=== PATIENT | male | born 1945 | race Caucasian/White ===

== ENCOUNTER 2024-11-09 17:50 | Inpatient (IN) | payer MEDICARE, BC, SELFPAY ==
[2024-11-09 18:29] VITALS: BP 146/84; PULSE 91; RESP 18; TEMP 36.3; O2SAT 95
--- NOTE | 2024-11-09 18:30 | PC.NURSE ---
Patient is a new direct admit, BP 146/84, HR91, RR18, Temp 97.3 no complaints of pain at this time states he is comfortable, son at bedside
[2024-11-09 18:31] VITALS: BMI 22.8
--- NOTE | 2024-11-09 19:44 | EKG_ITS ---
[facility] Test Date: 2024-11-09 Pat Name: JOSE CARLOS PLUNKETT [facility] Gender: Male Registered Private Duty Nurse: TISHA : 1945 Requested By: Khurram Ray Order Number: [id number] Reading MD: Khurram Ray Measurements Intervals [place] Rate: 77 P: 39 LA: 166 QRS: 39 QRSD: 98 T: 53 QT: 373 QTc: 423 Interpretive Statements SINUS RHYTHM Compared to ECG 03/05/2021 14:08:05 No significant changes /store/S0/[id number].pdf
--- NOTE | 2024-11-09 19:47 | XR_ITS ---
Examination: CT chest with intravenous contrast 2-D sagittal and coronal reconstructions Exam date and time: November 10, 2024 1737 hours Comparison January 26, 2017 INDICATIONS: Diagnosis myasthenia gravis CTDI:vol (mGy) 19.3 DLP: (mGycm) 785 Technique: Multiple axial sections of the thorax have been obtained. Sections have been obtained, 3 mm slice thickness. Mediastinal and lung density settings have been obtained. Intravenous contrast administered, 60 cc Isovue-370. 2-D sagittal, coronal images obtained. Low dose protocols were performed. One or more of the following dose reduction techniques were used; automated exposure control, adjustment of the mA and/or KV according to patient size, use of iterative reconstruction technique. Findings: No anterior mediastinal mass No thoracic aortic aneurysmal dilatation Pulmonary artery segments are not enlarged No paratracheal tracheobronchial or bronchopulmonary adenopathy Atelectasis versus mild pneumonia both bases 4 mm pleural-based pulmonary nodule posterior left lung image 100 2 mm pulmonary nodule posterior right lung image 208 12 mm pulmonary nodule right lower lobe image 237 4 mm anterior liver cyst Possible gallbladder sludge No pancreatic mass Kidneys partially visualized no hydronephrosis Severe osteopenia IMPRESSION: No anterior mediastinal mass Pulmonary nodules as above, with this study as baseline recommend 1 additional 6 month follow-up CT chest without contrast Recommend hepatobiliary sonography follow-up to exclude gallbladder sludge
--- NOTE | 2024-11-09 19:48 | XR_ITS ---
Examination: AP chest single view Technique one AP portable supine chest single view Exam date and time: November 09, 20244 hrs. Indications: Difficulty breathing today, diagnosis myasthenia gravis Findings: Normal heart size. Lungs are clear. Prominent osteopenia Impression: No active disease
[2024-11-09 20:00] VITALS: BP 136/65; PULSE 73; PULSE 74; RESP 17; TEMP 36.4; O2SAT 96
[2024-11-09 20:42] LABS: Basophils % (Auto) 1 % (0-2.5); Eosinophils # (Auto) 0.3 Thou/mm3 (0.0-0.5); Eosinophils % (Auto) 6 % (0-10); Hematocrit 40.3 % (41.0-53.0); Hemoglobin 13.5 g/dL (13.5-16.0); Immature Granulocytes % (Auto) 0 % (0-0); Immature Granulocytes Auto 0.01 Thou/mm3 (0.00-0.00); Lymphocytes # (Auto) 1.7 Thou/mm3 (1.0-4.8); Lymphocytes % (Auto) 28 % (10-50); Mean Corpuscular HGB Conc 33.5 g/dl (31.0-37.0); Mean Corpuscular Volume 87 fL (80-100); Monocytes # (Auto) 0.5 Thou/mm3 (0.0-0.8); Monocytes % (Auto) 9 % (0-12); Neutrophils # (Auto) 3.6 Thou/mm3 (1.8-7.7); Neutrophils % (Auto) 58 % (37-80); Nucleated Red Blood Cell % 0 /100 WBC (0); Platelet Count 196 Thou/mm3 (140-440); RDW Standard Deviation 40.7 fL (35.1-43.9); Red Blood Count 4.65 Miln/mm3 (4.50-5.90); White Blood Count 6.2 Thou/mm3 (3.8-10.6)
--- NOTE | 2024-11-09 20:57 | PD.RESHP ---
Documentation for date of: 11/09/24 HPI History of Present Illness Chief complaint: Dysphagia, neck muscle weakness History of present illness: Mr. Mcdaniels is a 78-year-old male with past medical history of myasthenia gravis, Parkinson's disease and allergic seasonal bronchitis who presented to [facility] on 11/09/2024 with a chief complaint of dysphagia and neck muscle weakness. Patient's son present at bedside, patient reported initially he was diagnosed in 2017 with myasthenia gravis and has been following up outpatient with neurology closely, reports compliance with myasthenia gravis medications. Patient reported that recently his myasthenia gravis symptoms have started getting worse over the last 3 weeks. Apparently his symptoms have been intermittent worse on some days more than others there is notable bulbar weakness identifiably with chewing and swallowing he also reports extensive weakness of neck muscles, making it difficult for him to hold up his neck. He was recently evaluated in neurologists office who recommended patient to be admitted for management of myasthenia gravis exacerbation. Neurology was consulted and will be following closely. Vitals: On presentation blood pressure 146/84, P91, RR 18, temp 97.3, O2 sat 95 on room air Labs: On presentation labs significant for hematocrit 40.3, chloride 110, BUN 25, globulin 2.1 Imaging: Chest x-ray shows no active disease. EKG shows sinus rhythm, QTc 423 Review of Systems Review of Systems Narrative Review of Systems: ROS: -CONSTITUTIONAL: Denies weight loss, fever and chills. -HEENT: Denies changes in vision and hearing. Positive for neck muscle weakness -RESPIRATORY: Denies SOB and positive for cough. -CV: Denies palpitations and Chest Pain. -GI: Denies abdominal pain, nausea, vomiting,constipation and diarrhea. Positive for dysphagia -: Denies dysuria and urinary frequency. -MSK: Denies myalgia and joint pain. -SKIN: Denies rash and pruritus. -NEUROLOGICAL: Denies headache and syncope. -PSYCHIATRIC: Denies recent changes in mood. Denies anxiety and depression. Past Medical History Past Medical History Comments PMH COMMENT: PMH: Positive for myasthenia gravis (diagnosed 2016), Parkinson's disease, allergic seasonal bronchitis PSHx: Prostate surgery in 2009 Allergies: Latex (itching) Social history: -Smoking: Denies -Alcohol Use: Denies -Illicit Drug Use: Denies Family History: Denies family history of myasthenia gravis or Parkinson's disease. Exam Vital Signs Temp Pulse Resp BP Pulse Ox O2 Del Method 97.3 F 74 18 146/84 H 95 Aerosol Mask 11/09/24 18:29 11/09/24 20:00 11/09/24 18:29 11/09/24 18:29 11/09/24 18:29 11/09/24 18:29 Narrative Exam Physical Exam General: Awake and in no acute distress. Conversational and non-toxic appearing. HEENT: Normocephalic, atraumatic, mucous membranes moist. Heart: Regular rate and rhythm, no murmurs. Lungs: Clear to auscultation with no wheezing or crackles. Abdomen: Soft, nondistended, nontender, positive bowel sounds. ?No guarding or rebound tenderness. Neurologic: Alert and oriented x3, no gross neurological deficit, and patient able to move all 4 extremities. Pill-rolling tremor noted left hand, neck muscle weakness noted. Extremities: No edema. Skin: No rash or ecchymoses. Results: Labs 11/09/24 19:51 11/09/24 19:51 Labs: Short CBC 11/09/24 Range/Units 19:51 WBC 6.2 (3.8-10.6) Thou/mm3 Hgb 13.5 (13.5-16.0) g/dL Hct 40.3 L (41.0-53.0) % Plt Count 196 (140-440) Thou/mm3 Quality Measures Quality Measures VTE prophylaxis Advance care planning discussed with:: patient Medications Home Medications and Allergies Home Medications ?Medication ?Instructions ?Recorded ?Confirmed ?Type enalapril maleate 5 mg tablet 5 mg PO QDAY #0 tabs 02/12/16 11/10/24 History (Vasotec) azathioprine 50 mg tablet (Imuran) 50 mg PO BID #0 tabs 07/30/17 11/10/24 History Pyridostigmine [place] SA * 60 mg PO 5 TIMES DAILY Myasthenia 08/27/20 11/09/24 History (MESTINON SA *) gravis ##0 fluticasone 100 mcg-salmeterol 50 1 inh inhalation BID 08/27/20 11/09/24 History mcg/dose blistr powdr for inhalation (Wixela Inhub) tamsulosin 0.4 mg capsule 0.4 mg PO QHS 08/26/21 11/10/24 History carbidopa 25 mg-levodopa 100 mg 1 tab PO 3XD 11/09/24 11/10/24 History tablet pramipexole 0.5 mg tablet 0.5 mg PO 3XD 11/09/24 11/09/24 History pyridostigmine bromide 60 mg tablet 60 mg PO 5 TIMES DAILY 11/10/24 11/10/24 History Allergies Allergy/AdvReac Type Severity Reaction Status Date / Time latex Allergy Severe Itching Unverified 11/10/24 00:06 Visit Medications Acetaminophen (Acetaminophen 325 Mg Tablet) 650 mg PO QDAY@2029 [place] Stop: 11/13/24 20:31 Diphenhydramine HCl (Diphenhydramine Inj 50 Mg/Ml Vial) 25 mg IV QDAY@2029 [place] Stop: 11/13/24 20:31 Immune Globulin 20 gm/ Immune Globulin 10 gm/ IV Miscellaneous Supplies 300 mls @ 50 mls/hr IV QDAY@2099 [place] Stop: 11/14/24 02:59 Pyridostigmine [place] (Pyridostigmine Inj 5 Mg/Ml Amp 2 Ml) 2 mg IV Q6HR [place] Stop: 12/10/24 00:00 Assessment & Plan Plan Assessment and Plan: Summary: Mr. Mcdaniels is a 78-year-old male with past medical history of myasthenia gravis, Parkinson's disease and allergic seasonal bronchitis who presented to [facility] on 11/09/2024 with a chief complaint of dysphagia and neck muscle weakness. He was recently evaluated in neurologists office who recommended patient to be admitted for management of myasthenia gravis exacerbation. Neurology is consulted and will be following closely. #Myasthenia gravis exacerbation #Dysphagia #Neck muscle weakness Exacerbation of myasthenia gravis symptoms, dysphagia, jaw muscle weakness, neck weakness noted for about 3 weeks. Patient compliant with myasthenia gravis medications, was recently seen in neurologist office, neurology recommended admission for myasthenia gravis exacerbation. Neurology was consulted and is following closely. No respiratory muscle weakness noted, patient saturating well on room air, can consider NIF testing to assess muscle strength. Plan: ? Admit to telemetry ? Neurochecks every 4 hours ? Pyridostigmine 2 mg IV every 6 hours ? IVIG 400 mg/kg daily (to run for 6 hours) ? IVIG premedication: Tylenol 650 mg p.o./AK and Benadryl 25 mg IV to be given 30 minutes prior to IVIG ? Neurology consulted, appreciate recommendations ? N.p.o., aspiration precaution, nurse swallow screen, speech therapy referral ? Follow CT chest with and without contrast #Parkinson's disease Follows neurology for Parkinson's, pill-rolling tremor noted left hand ?Resumed home dose carbidopa-levodopa ?Resumed home dose pramipexole 0.5 mg 3 times daily #Seasonal allergic bronchitis No wheezing appreciated currently, patient saturating well on room air -Fluticasone salmeterol inhaler twice daily be added DVT prophylaxis: Heparin every 12 hours GI prophylaxis: IV Protonix Diet: N.p.o., pending speech therapy evaluation Lines: Peripheral IV Code status: Full code Case discussed with Attending Dr. Cowan. Khurram Ray PGY1 Internal medicine Disclaimer: This note was dictated by speech recognition. Minor errors in bike shop manager may be present due to voice recognition software. Attending Provider Attestation/Addendum 78-year-old male patient Mr. Jose Rafael Mcdaniels is a patient of Dr. Muñoz who was admitted directly because of neck muscle weakness. Patient has myasthenia gravis. He was started on IVIG infusion 400 mg IV over 6 hours x 5 days and Mestinon 2 mg IV every [address] Muñoz will follow.
[2024-11-09 21:03] LABS: Alanine Aminotransferase 26 U/L (10-49); Albumin, Serum 4.2 gm/dL (3.4-4.8); Alkaline Phosphatase 86 U/L (46-116); Anion Gap 4 (7-16); Aspartate Amino Transferase 23 U/L (0-34); BUN/Creatinine Ratio 25 Ratio (12-20); Bilirubin,Total 0.7 mg/dL (0.3-1.2); Blood Urea Nitrogen 25 mg/dL (9-23); Calcium 9.7 mg/dL (8.3-10.6); Calcium (Corrected) 9.7 mg/dL (8.5-10.1); Carbon Dioxide 28.6 mMol/L (20.0-31.0); Chloride 110 mMol/L (98-107); Globulin 2.1 gm/dL (2.3-3.5); Glucose 77 mg/dL (74-106); Osmolality,Calculated 288 (275-295); Potassium 4.2 mMol/L (3.4-5.1); Sodium 143 mMol/L (136-145); Total Protein 6.3 gm/dL (5.7-8.2); eGFR > 60 See Note
--- NOTE | 2024-11-09 21:15 | PC.NURSE ---
Pt transferred to tele floor room 262 per MD Ray order, all belongings was transferred. Report given to Monie GREEN.
[2024-11-09 21:30] VITALS: BP 131/66; PULSE 98; RESP 15; TEMP 36.5; O2SAT 99
--- NOTE | 2024-11-09 22:40 | PD.VCONSULT1 ---
Telemedicine visit statement This visit was conducted with the use of interactive audio and video telecommunications system that permits real time communication between the patient and the provider. Patient's verbal consent for virtual visit was obtained on 11/09/24 at 2240. Past Medical History Past Medical History Comments PMH COMMENT: PMH: Positive for myasthenia gravis (diagnosed 2016), Parkinson's disease, allergic seasonal bronchitis PSHx: Prostate surgery in 2009 Allergies: Latex (itching) Social history: -Smoking: Denies -Alcohol Use: Denies -Illicit Drug Use: Denies Family History: Denies family history of myasthenia gravis or Parkinson's disease. TeleMedicine ROS Pertinent Review of Systems Systems Reviewed: All systems reviewed, normal except as documented Meds Home Medications and Allergies Home Medications ?Medication ?Instructions ?Recorded ?Confirmed ?Type enalapril maleate 5 mg tablet 5 mg PO QDAY #0 tabs 02/12/16 11/10/24 History (Vasotec) azathioprine 50 mg tablet (Imuran) 50 mg PO BID #0 tabs 07/30/17 11/10/24 History Pyridostigmine [place] SA * 60 mg PO 5 TIMES DAILY Myasthenia 08/27/20 11/09/24 History (MESTINON SA *) gravis ##0 fluticasone 100 mcg-salmeterol 50 1 inh inhalation BID 08/27/20 11/09/24 History mcg/dose blistr powdr for inhalation (Wixela Inhub) tamsulosin 0.4 mg capsule 0.4 mg PO QHS 08/26/21 11/10/24 History carbidopa 25 mg-levodopa 100 mg 1 tab PO 3XD 11/09/24 11/10/24 History tablet pramipexole 0.5 mg tablet 0.5 mg PO 3XD 11/09/24 11/09/24 History pyridostigmine bromide 60 mg tablet 60 mg PO 5 TIMES DAILY 11/10/24 11/10/24 History Allergies Allergy/AdvReac Type Severity Reaction Status Date / Time latex Allergy Severe Itching Unverified 11/10/24 00:06 Virtual exam Vital Signs Temp Pulse Resp BP Pulse Ox O2 Del Method 97.7 F 98 15 131/66 H 99 Room Air 11/09/24 21:30 11/09/24 21:30 11/09/24 21:30 11/09/24 21:30 11/09/24 21:30 11/09/24 21:30 Results Labs 11/10/24 04:18 11/10/24 04:18 Labs: Short CBC 11/09/24 Range/Units 19:51 WBC 6.2 (3.8-10.6) Thou/mm3 Hgb 13.5 (13.5-16.0) g/dL Hct 40.3 L (41.0-53.0) % Plt Count 196 (140-440) Thou/mm3 BMP 11/09/24 19:51 Sodium 143 Potassium 4.2 Chloride 110 H Carbon Dioxide 28.6 BUN 25 H Creatinine 1.0 Glucose 77 Calcium 9.7 Liver Function 11/09/24 Range/Units 19:51 Total Bilirubin 0.7 (0.3-1.2) mg/dL AST 23 (0-34) U/L ALT 26 (10-49) U/L Alkaline Phosphatase 86 (46-116) U/L Albumin 4.2 (3.4-4.8) gm/dL Assessment & Plan Problem List (1) Myasthenia gravis with exacerbation: Status: Acute Assessment and plan: Continue with IVIG 400 mg/kg with premedications Mestinon 2 mg IV every 6 hours until he is able to swallow better for risk of aspiration Consult speech pathology Get pulmonary mechanics at the bedside Follow-up with the CT chest to look for residual thymic tissue. (2) Parkinsons disease: Status: Chronic Assessment and plan: Continue with pramipexole
[2024-11-09] MEDS: PYRIDOSTIGMINE 5 MG/ML 2 MG IV (23:51)
[2024-11-10] VITALS (8 sets, daily range): BP systolic 119–136; BP diastolic 60–72; PULSE 60–84; RESP 16–21; TEMP 36.2–36.5; O2SAT 96–99; BMI 22.8; BMI 13.0
[2024-11-10] MEDS: DiphenhydrAMINE INJ 50 MG/ML VIAL 25 MG IV ×2 (00:40→21:00)
[2024-11-10] MEDS: ACETAMINOPHEN 325 MG TABLET 650 MG PO ×2 (00:41→21:00)
[2024-11-10] MEDS: PRE MIXED IV ×2 (01:12→21:45)
[2024-11-10] MEDS: IMMUNE GLOB GA CA IV ×2 (01:12→21:45)
[2024-11-10 05:40] LABS: Basophils % (Auto) 1 % (0-2.5); Eosinophils # (Auto) 0.3 Thou/mm3 (0.0-0.5); Eosinophils % (Auto) 7 % (0-10); Hematocrit 37.2 % (41.0-53.0); Hemoglobin 12.3 g/dL (13.5-16.0); Immature Granulocytes % (Auto) 0 % (0-0); Lymphocytes # (Auto) 1.5 Thou/mm3 (1.0-4.8); Lymphocytes % (Auto) 36 % (10-50); Mean Corpuscular HGB Conc 33.1 g/dl (31.0-37.0); Mean Corpuscular Hemoglobin 28.9 pg (25.0-35.0); Mean Corpuscular Volume 87 fL (80-100); Monocytes # (Auto) 0.3 Thou/mm3 (0.0-0.8); Monocytes % (Auto) 8 % (0-12); Neutrophils # (Auto) 2.1 Thou/mm3 (1.8-7.7); Neutrophils % (Auto) 50 % (37-80); Nucleated Red Blood Cell % 0 /100 WBC (0); Platelet Count 160 Thou/mm3 (140-440); Red Blood Count 4.26 Miln/mm3 (4.50-5.90); White Blood Count 4.2 Thou/mm3 (3.8-10.6)
[2024-11-10 05:44] LABS: INR 1.4 (0.9-1.3); Partial Thromboplastin Time 33.2 Seconds (22.0-36.0); Prothrombin Time 14.6 Seconds (9.0-12.2)
[2024-11-10] MEDS: PRAMIPEXOLE 0.25 MG TABLET 0.5 MG PO ×3 (06:14→22:30)
[2024-11-10] MEDS: PYRIDOSTIGMINE 5 MG/ML 2 MG IV ×3 (06:15→18:14)
[2024-11-10 06:25] LABS: Alanine Aminotransferase 21 U/L (10-49); Albumin, Serum 3.6 gm/dL (3.4-4.8); Albumin/Globulin Ratio 1.6 (1.2-2.2); Alkaline Phosphatase 76 U/L (46-116); Anion Gap 5 (7-16); Aspartate Amino Transferase 17 U/L (0-34); BUN/Creatinine Ratio 22 Ratio (12-20); Bilirubin,Total 0.7 mg/dL (0.3-1.2); Blood Urea Nitrogen 22 mg/dL (9-23); Calcium 9.2 mg/dL (8.3-10.6); Calcium (Corrected) 9.5 mg/dL (8.5-10.1); Carbon Dioxide 27.8 mMol/L (20.0-31.0); Cardiac Risk Estimate 2.5 RATIO (4.0-6.7); Chloride 110 mMol/L (98-107); Cholesterol 81 mg/dL (132-200); Globulin 2.3 gm/dL (2.3-3.5); Glucose 83 mg/dL (74-106); HDL Cholesterol 33 mg/dL (40-60); LDL Cholesterol,Calculated 36 mg/dL (0-130); Osmolality,Calculated 287 (275-295); Phosphorous 3.3 mg/dL (2.4-5.1); Sodium 143 mMol/L (136-145); Total Protein 5.9 gm/dL (5.7-8.2); Triglycerides 62 mg/dL (30-150); eGFR > 60 See Note
[2024-11-10 08:10] LABS: Collection Type, Urine Clean Catch
[2024-11-10] MEDS: PANTOPRAZOLE INJ 40 MG VIAL IVP (08:13)
[2024-11-10] MEDS: HEPARIN SOD INJ 5000 UNIT/ML VIAL SC ×2 (08:14→21:05)
--- NOTE | 2024-11-10 09:34 | PCS.ST ---
Acute dysphagia d/t MG exacerbation. Not safe for PO diet today. See report for details. Ok to give one PO med in puree. ST service daily.
[2024-11-10 09:44] LABS: Bacteria,Urine 4+; Bilirubin,Urine Negative (Negative); Blood,Urine Negative (Negative); Clarity,Urine Clear (Clear/Hazy); Color,Urine Yellow (Lt Yel-Yel); Glucose, Urine Negative (Negative); Hyaline Casts,Urine < 1 /hpf (0-1); Ketones,Urine 1+ (Negative); Leukocyte Esterase,Urine Negative (Negative); Nitrite,Urine Positive (Negative); PH,Urine 5.5 (5.0-7.0); Protein,Urine Trace (Neg - Trace); RBC,Urine 2 /hpf (0-3); Specific Gravity,Urine 1.031 (1.001-1.035); Squamous Epithelial Cell,Urine < 1 /hpf (0-5); Urobilinogen,Urine Negative mg/dL (0.0-1.0); WBC,Urine 1 /hpf (0-5)
--- NOTE | 2024-11-10 11:44 | PC.SS ---
FIELD SERVICE POULTRY TECHNICIAN conducted bedside contact with the patient conduct initial assessment and to discuss discharge planning.? Patient confirmed demographic information.? Patient resides at home with spouse, Jenn Mcdaniels.? Patient does not utilize DME to assist with ambulation.? Patient does not utilize home oxygen.? Patient describes the ability to complete ADL?s independently.? Patient?s medical surrogate decision maker is spouse, Jenn Mcdaniels.? Patient?s PCP is Rukhsana Bowers.? Patient?s neurologist is Dr. Ledesma. Patient utilizes [facility] for medication services.? Plan is for the patient to return home at the time of discharge.? PT recommending home health.? Patient receptive to home health.? Preferred home health agency is [facility].? Family will provide transportation on behalf of the patient at the time of discharge.? No further intervention required at this time, social services director will be available to address any further concerns.? Next of Kin: Jenn Mcdaniels D/C Plan: Home
--- NOTE | 2024-11-10 13:26 | PD.ADDPROG ---
Addendum Progress Note Addendum Date of report being addended: 11/10/24 Narrative: Attending's attestation: I reviewed labs, imaging, EKG, home medications and prior available records. Face to face evaluation was performed by me. I have personally examined the patient and discussed assessment and plan with the IM team. I reviewed the resident note and agree with the plan with exceptions as below. Myasthenia gravis flare Parkinson's disease Dysphagia Generalized weakness, more in neck muscles Started pyridostigmine and IVIG Consulted neurology: Appreciate recommendations Ordered swallow evaluation: Failed. Keep the patient NPO. Started IV fluids. Repeat swallow test/speech evaluation later when the MG improves Continue levodopa/carbidopa PT evaluation
--- NOTE | 2024-11-10 14:06 | PD.RESPRO ---
Documentation for date of: 11/10/24 Subjective Subjective Interval history: Patient seen at bedside. No acute overnight events. He is a 78-year-old male with a past medical history of myasthenia gravis and Parkinson's presented on 11/09/2024 with a chief complaint of dysphagia and neck muscle weakness. Other symptoms are been worsening over the past year, may have significantly worsened over the last 3 weeks. He had an appointment with a neurologist who recommended he be admitted for management of myasthenia gravis exacerbation. At bedside today, patient does report neck muscle weakness more significant than any other symptom as well as difficulty chewing and swallowing. Speech evaluation was done but patient did not pass so is currently n.p.o. He is on IVIG as well as Mestinon Exam Vital Signs Temp Pulse Resp BP Pulse Ox O2 Del Method 97.5 F 70 21 H 124/68 99 Room Air 11/10/24 12:00 11/10/24 12:00 11/10/24 12:00 11/10/24 12:00 11/10/24 12:11/10/24 12:00 Narrative Exam GENERAL: AAOX3, sitting in bed comfortably NEURO: POWERTRAIN ENGINEER grossly intact. Resting tremors more significant to the left, upper extremity strength preserved-5/5, lower extremity strength-3/5, reflexes decreased bilaterally HEENT: Moist mucosa. Eyes open, symmetrical, & clear CARDIO: No chest pain on palpation. Heart RRR, no obvious murmurs PULM: No noted coughing/dyspnea. Lungs CTA B/L GI: Abdomen soft, nondistended, no pain on palpation. BSx4 URO/TERRITORY ACCOUNT MANAGER:: No further abnormalities noted. SKIN/MSK/EXT: Weakness in the neck extensor muscles Objective Labs 11/11/24 04:44 11/11/24 04:44 Labs: Laboratory Results - last 24 hr 11/09/24 11/10/24 11/10/24 19:51 04:18 08:00 WBC 6.2 4.2 RBC 4.65 4.26 L Hgb 13.5 12.3 L Hct 40.3 L 37.2 L MCV 87 87 MCH 29.0 28.9 MCHC 33.5 33.1 RDW Std Deviation 40.7 41.0 Plt Count 196 160 D Neut % (Auto) 58 50 Lymph % (Auto) [address] [place] % (Auto) 9 8 Eos % (Auto) 6 7 Baso % (Auto) 1 1 Neut # (Auto) 3.6 2.1 Lymph # (Auto) 1.[address] [place] # (Auto) 0.5 0.3 Eos # (Auto) 0.3 0.3 Baso # (Auto) 0.0 0.0 Immature Gran # (Auto) 0.01 H 0.00 Absolute Nucleated RBC 0.00 0.00 Immature Gran % 0 0 Nucleated RBC % 0 0 PT 14.6 H INR 1.4 H APTT 33.2 Sodium 143 143 Potassium 4.2 4.0 Chloride 110 H 110 H Carbon Dioxide 28.6 27.8 Anion Gap 4 L 5 L BUN 25 H 22 Creatinine 1.0 1.0 Estim Creat Clear Calc 72.0 72.0 eGFR > 60 > 60 BUN/Creatinine Ratio 25 H 22 H Glucose 77 83 Calculated Osmolality 288 287 Calcium 9.7 9.2 Corrected Calcium 9.7 9.5 Phosphorus 3.3 Magnesium 2.0 Total Bilirubin 0.7 0.7 AST 23 17 ALT 26 21 Alkaline Phosphatase 86 76 Total Protein 6.3 5.9 Albumin 4.2 3.6 D Globulin 2.1 L 2.3 Albumin/Globulin Ratio 2.0 1.6 Triglycerides 62 Cholesterol 81 L LDL Cholesterol, Calc 36 HDL Cholesterol 33 L Cholesterol/HDL Ratio 2.5 L TSH 2.50 Ur Collection Type Clean Catch Urine Color Yellow Urine Clarity Clear Urine pH 5.5 Ur Specific [place] 1.031 Urine Protein Trace Urine Glucose (UA) Negative Urine Ketones 1+ A Urine Blood Negative Urine Nitrite Positive Urine Bilirubin Negative Urine Urobilinogen (Auto) Negative Ur Leukocyte Esterase Negative Urine RBC 2 Urine WBC 1 Ur Squamous Epith Cells < 1 Urine Bacteria 4+ A Hyaline Casts < 1 Quality Measures Quality Measures VTE prophylaxis Advance care planning discussed with:: patient Assessment & Plan Assessment Current Active Medications: Generic Name Dose Route Start Last Admin Trade Name Freq PRN Reason Stop Dose Admin Acetaminophen 650 mg 11/09/24 20:30 11/10/24 00:41 Acetaminophen 325 Mg Tablet PO 11/13/24 20:31 650 mg QDAY@2030 [facility] Administration Acetaminophen 650 mg 11/09/24 21:26 Acetaminophen 325 Mg Tablet PO 12/09/24 21:25 Q6H PRN Mild Pain (1-3 & Fever >101.5 Diphenhydramine HCl 25 mg 11/09/24 20:30 11/10/24 00:40 Diphenhydramine Inj 50 Mg/Ml Vial IV 11/13/24 20:31 25 mg QDAY@2030 [facility] Administration Heparin Sodium (Porcine) 5,000 unit 11/10/24 09:00 11/10/24 08:14 Heparin Sod Inj 5000 Unit/Ml Vial SC 11/24/24 08:59 5,000 unit Q12HR [place] Administration Immune Globulin 20 gm/ Immune 300 mls @ 50 mls/hr 11/09/24 21:00 11/10/24 01:12 Globulin 10 gm/ IV IV 11/14/24 02:59 50 mls/hr Miscellaneous Supplies QDAY@2100 [facility] Administration Sodium Chloride 1,000 mls @ 75 mls/hr 11/10/24 13:42 Ns IV 12/10/24 13:41 .[id number] [place] Pantoprazole Sodium 40 mg 11/10/24 09:00 11/10/24 08:13 Pantoprazole Inj 40 Mg Vial IVP 12/10/24 08:59 40 mg QDAY [place] Administration Pramipexole Dihydrochloride 0.5 mg 11/10/24 06:00 11/10/24 06:14 Pramipexole 0.25 Mg Tablet PO 12/10/24 05:59 0.5 mg TID [place] Administration Pyridostigmine [place] 2 mg 11/10/24 00:00 11/10/24 13:00 Pyridostigmine Inj 5 Mg/Ml Amp 2 Ml IV 12/10/24 00:00 2 mg Q6HR [place] Administration Fluticasone/Salmeterol 1 puff 11/09/24 21:16 Fluticasone/Salmeterol 100/50 14 Dose Inh INH 12/10/24 06:59 BIDRT PRN SOB/Wheeze Sennosides 1 tab 11/09/24 21:26 Senna Tablet PO 12/09/24 21:25 QDAY PRN constipation Protocol Plan Summary: The patient is a 78-year-old male with past medical history of myasthenia gravis, Parkinson's disease and allergic seasonal bronchitis who presented to [facility] on 11/09/2024 with a chief complaint of dysphagia and neck muscle weakness. He was recently evaluated in neurologists office who recommended patient to be admitted for management of myasthenia gravis exacerbation. Neurology is consulted and will be following closely. #Myasthenia gravis exacerbation #Dysphagia #Neck muscle weakness The patient presented with exacerbation of myasthenia gravis symptoms, dysphagia, jaw muscle weakness, neck weakness noted for about 3 weeks. Patient compliant with myasthenia gravis medications, was recently seen in neurologist office, neurology recommended admission for myasthenia gravis exacerbation. Neurology was consulted and is following closely. No respiratory muscle weakness noted, patient saturating well on room air. Patient failed swallow evaluation today, will continue to be npo and repeat eval in 24-48hrs Plan: ? Pyridostigmine 2 mg IV every 6 hours ? IVIG 400 mg/kg daily (to run for 6 hours) ? IVIG premedication: Tylenol 650 mg p.o./TX and Benadryl 25 mg IV to be given 30 minutes prior to IVIG ? Neurology consulted, appreciate recommendations ? N.p.o., aspiration precaution, speech therapy referral ? Follow CT chest with and without contrast #Parkinson's disease Follows neurology for Parkinson's, pill-rolling tremor noted left hand Plan: ?Resumed home dose pramipexole 0.5 mg 3 times daily #Seasonal allergic bronchitis No wheezing appreciated currently, patient saturating well on room air -Fluticasone salmeterol inhaler twice daily be added DVT prophylaxis: SC Heparin GI prophylaxis: IV Protonix Diet: N.p.o Lines: Peripheral IV Code status: Full code Case was discussed with Dr Turner PGY-2 and attending physician, Dr Emilia Thomas MD PGY-1 Disclaimer: This note was dictated by speech recognition. Minor errors in service center technician may be present due to voice recognition software. Attending Provider Attestation/Addendum I reviewed labs, imaging, EKG, home medications and prior available records. Face to face evaluation was performed by me. I have personally examined the patient and discussed assessment and plan with the IM team. I reviewed the resident note and agree with the plan with exceptions as below. See my addendum in a separate addendum note
[2024-11-10] MEDS: SODIUM CHLORIDE 0.9% 1000 ML 1,000 ML 75 ML IV (14:41)
--- NOTE | 2024-11-10 21:25 | PD.NEUROPROG ---
Documentation for date of: 11/10/24 Subjective Subjective Interval history: Patient was seen in telemetry today. Continues to have neck extensor weakness and bulbar weakness. Tolerating IVIG well without any side effects. Exam - Neurology Vital Signs Temp Pulse Resp BP Pulse Ox O2 Del Method 97.5 F 84 17 136/72 H 97 Room Air 11/10/24 19:49 11/10/24 19:49 11/10/24 19:49 11/10/24 19:49 11/10/24 19:49 11/10/24 19:49 Narrative Exam GENERAL APPEARANCE: Well hydrated, well-nourished in no acute distress. HEENT: Normocephalic, atraumatic, extraocular movements intact. Pupils: Equal reacting to light and accommodation NECK: Supple, no JVD or bruits. CARDIOVASULAR: Heart: S1, S2 heard, regular without S3-S4 or murmur no rubs or gallops. LUNGS/CHEST: Clear to auscultation bilaterally. No rails, rhonchi, or wheezing. Normal inspection. ABDOMEN: Soft, nontender, with normal bowel sounds. No pulsatile masses. No rebound, rigidity, or guarding. Normal inspection and palpation. EXTREMITIES: Normal inspection and palpation. No edema, clubbing or cyanosis. SKIN: Warm and dry without rashes. Normal inspection. MUSCULOSKELETAL: No cervical, thoracic, lumbar or midline bony tenderness. Normal inspection. NEURO: Alert, awake and oriented x3. Cranial nerves: II through XII grossly intact. Speech and language: Mild dysarthria secondary to bulbar weakness. Motor system: Tone and bulk: Normal: Strength: 5 out of 5 in all 4 extremities; No pronator drift noted. He has significant neck extensor weakness. Deep tendon reflexes: 1+ bilaterally symmetrical. Plantar reflex: Downgoing bilaterally. Sensory system: Intact to all modalities of sensation bilaterally. Coordination: Intact to rexmyl-xuzm-izruo and fycq-fekp-wytt test bilaterally. No ataxia, no dysmetria, or dysdiadochokinesia noted. No intention tremors noted. Gait: Not tested. no signs of meningeal irritation noted. PSYCHIATRIC: Normal mood and affect. Objective Labs 11/10/24 04:18 11/10/24 04:18 Labs: Laboratory Results - last 24 hr 11/10/24 11/10/24 04:18 08:00 WBC 4.2 RBC 4.26 L Hgb 12.3 L Hct 37.2 L MCV 87 MCH 28.9 MCHC 33.1 RDW Std Deviation 41.0 Plt Count 160 D Neut % (Auto) 50 Lymph % (Auto) 36 [place] % (Auto) 8 Eos % (Auto) 7 Baso % (Auto) 1 Neut # (Auto) 2.1 Lymph # (Auto) 1.5 [place] # (Auto) 0.3 Eos # (Auto) 0.3 Baso # (Auto) 0.0 Immature Gran # (Auto) 0.00 Absolute Nucleated RBC 0.00 Immature Gran % 0 Nucleated RBC % 0 PT 14.6 H INR 1.4 H APTT 33.2 Sodium 143 Potassium 4.0 Chloride 110 H Carbon Dioxide 27.8 Anion Gap 5 L BUN 22 Creatinine 1.0 Estim Creat Clear Calc 72.0 eGFR > 60 BUN/Creatinine Ratio 22 H Glucose 83 Calculated Osmolality 287 Calcium 9.2 Corrected Calcium 9.5 Phosphorus 3.3 Magnesium 2.0 Total Bilirubin 0.7 AST 17 ALT 21 Alkaline Phosphatase 76 Total Protein 5.9 Albumin 3.6 D Globulin 2.3 Albumin/Globulin Ratio 1.6 Triglycerides 62 Cholesterol 81 L LDL Cholesterol, Calc 36 HDL Cholesterol 33 L Cholesterol/HDL Ratio 2.5 L TSH 2.50 Ur Collection Type Clean Catch Urine Color Yellow Urine Clarity Clear Urine pH 5.5 Ur Specific [place] 1.031 Urine Protein Trace Urine Glucose (UA) Negative Urine Ketones 1+ A Urine Blood Negative Urine Nitrite Positive Urine Bilirubin Negative Urine Urobilinogen (Auto) Negative Ur Leukocyte Esterase Negative Urine RBC 2 Urine WBC 1 Ur Squamous Epith Cells < 1 Urine Bacteria 4+ A Hyaline Casts < 1 Assessment & Plan Assessment and plan (1) Myasthenia gravis with exacerbation: Status: Acute Assessment and plan: Continue with the Mestinon 2 mg IV, will change the frequency to every 4 hours. Continue with the IVIG for 4 more days with premedications. Continue with plan GI and DVT prophylaxis. Added maintenance fluid as he is n.p.o. Follow-up with the speech pathologist evaluation and management (2) Parkinsons disease: Status: Chronic Assessment and plan: Continue with pramipexole as prescribed
[2024-11-11] VITALS (9 sets, daily range): BP systolic 117–149; BP diastolic 62–92; PULSE 58–109; RESP 17–98; TEMP 36.2–37.2; O2SAT 96–98
[2024-11-11] MEDS: PYRIDOSTIGMINE 5 MG/ML 2 MG IV ×6 (01:07→21:40)
[2024-11-11] MEDS: RINGERS LACTATED 500 ML 500 ML 75 ML IV (04:00)
[2024-11-11] MEDS: PRAMIPEXOLE 0.25 MG TABLET 0.5 MG PO ×3 (05:54→21:40)
[2024-11-11 05:59] LABS: Basophils % (Auto) 0 % (0-2.5); Eosinophils # (Auto) 0.2 Thou/mm3 (0.0-0.5); Eosinophils % (Auto) 4 % (0-10); Hematocrit 36.3 % (41.0-53.0); Hemoglobin 12.3 g/dL (13.5-16.0); Immature Granulocytes % (Auto) 0 % (0-0); Immature Granulocytes Auto 0.01 Thou/mm3 (0.00-0.00); Lymphocytes % (Auto) 22 % (10-50); Mean Corpuscular HGB Conc 33.9 g/dl (31.0-37.0); Mean Corpuscular Hemoglobin 29.4 pg (25.0-35.0); Mean Corpuscular Volume 87 fL (80-100); Monocytes # (Auto) 0.4 Thou/mm3 (0.0-0.8); Monocytes % (Auto) 9 % (0-12); Neutrophils % (Auto) 64 % (37-80); Nucleated Red Blood Cell % 0 /100 WBC (0); Platelet Count 146 Thou/mm3 (140-440); RDW Standard Deviation 40.1 fL (35.1-43.9); Red Blood Count 4.19 Miln/mm3 (4.50-5.90); White Blood Count 4.7 Thou/mm3 (3.8-10.6)
[2024-11-11 06:31] LABS: Alanine Aminotransferase 15 U/L (10-49); Albumin, Serum 3.3 gm/dL (3.4-4.8); Albumin/Globulin Ratio 1.2 (1.2-2.2); Alkaline Phosphatase 70 U/L (46-116); Anion Gap 5 (7-16); Aspartate Amino Transferase 13 U/L (0-34); BUN/Creatinine Ratio 14 Ratio (12-20); Bilirubin,Total 0.7 mg/dL (0.3-1.2); Blood Urea Nitrogen 14 mg/dL (9-23); Calcium 8.7 mg/dL (8.3-10.6); Calcium (Corrected) 9.3 mg/dL (8.5-10.1); Carbon Dioxide 27.8 mMol/L (20.0-31.0); Chloride 108 mMol/L (98-107); Globulin 2.8 gm/dL (2.3-3.5); Glucose 81 mg/dL (74-106); Magnesium 1.9 mg/dL (1.6-2.6); Osmolality,Calculated 280 (275-295); Phosphorous 2.9 mg/dL (2.4-5.1); Sodium 141 mMol/L (136-145); Total Protein 6.1 gm/dL (5.7-8.2); eGFR > 60 See Note
[2024-11-11] MEDS: PANTOPRAZOLE INJ 40 MG VIAL IVP (09:01)
[2024-11-11] MEDS: HEPARIN SOD INJ 5000 UNIT/ML VIAL SC ×2 (09:01→20:41)
[2024-11-11] MEDS: RINGERS LACTATED 1000 ML 1,000 ML 75 ML IV (10:39)
--- NOTE | 2024-11-11 14:07 | ESPR_ITS ---
<Statement entered by Ezequiel Turner MD - 11/12/24 15:38> Senior Resident Attestation: I supervised/discussed management plan with internist medical doctor md physician Dr. Thomas, and was involved in the care of this patient. I personally saw and examined the patient and discussed the assessment and plan with the entire medicine team, including my attending. I agree with the assessment and plan as documented. Patient's care was discussed with attending physician, Dr. Jackson. Ezequiel Turner MD PGY-2. Documentation for date of: 11/11/24 Subjective Subjective Interval history: Patient seen at bedside. No acute overnight events. Patient was seen to pill swallow eval today, is currently considering other forms of nutrition. Evaluated by neurologist Dr Muñoz yesterday, reviewed Mestinon to run every 4 hours, increased from 6 hourly. Will continue to give IVIG as well, if patient still unable to swallow, plan for NG tube feeding. In the interim, will continue IV maintenance fluids. Exam Vital Signs Temp Pulse Resp BP Pulse Ox O2 Del Method 98.9 F 109 H 17 126/92 H 98 Room Air 11/11/24 12:00 11/11/24 12:12 11/11/24 12:12 11/11/24 12:00 11/11/24 12:00 11/11/24 12:00 Narrative Exam GENERAL: AAOX3, sitting in bed comfortably NEURO: MEDICAL RECRUITER grossly intact. Resting tremors more significant to the left, upper extremity strength preserved-5/5, lower extremity strength-3/5, reflexes decreased bilaterally HEENT: Moist mucosa. Eyes open, symmetrical, & clear CARDIO: No chest pain on palpation. Heart RRR, no obvious murmurs PULM: No noted coughing/dyspnea. Lungs CTA B/L GI: Abdomen soft, nondistended, no pain on palpation. BSx4 URO/CHIEF CONTRACT OFFICER:: No further abnormalities noted. SKIN/MSK/EXT: Weakness in the neck extensor muscles Objective Labs 11/14/24 04:54 11/14/24 04:54 Labs: Laboratory Results - last 24 hr 11/11/24 04:44 WBC 4.7 RBC 4.19 L Hgb 12.3 L Hct 36.3 L MCV 87 MCH 29.4 MCHC 33.9 RDW Std Deviation 40.1 Plt Count 146 Neut % (Auto) 64 Lymph % (Auto) 22 [place] % (Auto) 9 Eos % (Auto) 4 Baso % (Auto) 0 Neut # (Auto) 3.0 Lymph # (Auto) 1.0 [place] # (Auto) 0.4 Eos # (Auto) 0.2 Baso # (Auto) 0.0 Immature Gran # (Auto) 0.01 H Absolute Nucleated RBC 0.00 Immature Gran % 0 Nucleated RBC % 0 Sodium 141 Potassium 4.0 Chloride 108 H Carbon Dioxide 27.8 Anion Gap 5 L BUN 14 Creatinine 1.0 Estim Creat Clear Calc 72.0 eGFR > 60 BUN/Creatinine Ratio 14 Glucose 81 Calculated Osmolality 280 Calcium 8.7 Corrected Calcium 9.3 Phosphorus 2.9 Magnesium 1.9 Total Bilirubin 0.7 AST 13 ALT 15 Alkaline Phosphatase 70 Total Protein 6.1 Albumin 3.3 L Globulin 2.8 Albumin/Globulin Ratio 1.2 Quality Measures Quality Measures VTE prophylaxis Advance care planning discussed with:: patient Assessment & Plan Assessment Current Active Medications: Generic Name Dose Route Start Last Admin Trade Name Freq PRN Reason Stop Dose Admin Acetaminophen 650 mg 11/09/24 20:30 11/10/24 21:00 Acetaminophen 325 Mg Tablet PO 11/13/24 20:31 650 mg QDAY@2030 [place] Administration Acetaminophen 650 mg 11/09/24 21:26 Acetaminophen 325 Mg Tablet PO 12/09/24 21:25 Q6H PRN Mild Pain (1-3 & Fever >101.5 Diphenhydramine HCl 25 mg 11/09/24 20:30 11/10/24 21:00 Diphenhydramine Inj 50 Mg/Ml Vial IV 11/13/24 20:31 25 mg QDAY@2030 [place]IGH Administration Heparin Sodium (Porcine) 5,000 unit 11/10/24 09:00 11/11/24 09:01 Heparin Sod Inj 5000 Unit/Ml Vial SC 11/24/24 08:59 5,000 unit Q12HR [place]IGH Administration Immune Globulin 20 gm/ Immune 300 mls @ 50 mls/hr 11/09/24 21:00 11/10/24 21:45 Globulin 10 gm/ IV IV 11/14/24 02:59 50 mls/hr Miscellaneous Supplies QDAY@2100 [place]IGH Administration Lactated Ringer's 1,000 mls @ 75 mls/hr 11/11/24 10:30 11/11/24 10:39 Lactated Ringers IV 12/10/24 10:29 75 mls/hr .[id number] [place] Administration Pantoprazole Sodium 40 mg 11/10/24 09:00 11/11/24 09:01 Pantoprazole Inj 40 Mg Vial IVP 12/10/24 08:59 40 mg QDAY [place] Administration Pramipexole Dihydrochloride 0.5 mg 11/10/24 06:00 11/11/24 05:54 Pramipexole 0.25 Mg Tablet PO 12/10/24 05:59 0.5 mg TID [place] Administration Pyridostigmine [place] 2 mg 11/11/24 10:00 11/11/24 10:22 Pyridostigmine Inj 5 Mg/Ml Amp 2 Ml IV 12/11/24 09:59 2 mg Q4HR [place]IGH Administration Fluticasone/Salmeterol 1 puff 11/09/24 21:16 Fluticasone/Salmeterol 100/50 14 Dose Inh INH 12/10/24 06:59 BIDRT PRN SOB/Wheeze Sennosides 1 tab 11/09/24 21:26 Senna Tablet PO 12/09/24 21:25 QDAY PRN constipation Protocol Plan Summary: The patient is a 78-year-old male with past medical history of myasthenia gravis, Parkinson's disease and allergic seasonal bronchitis who presented to [facility] on 11/09/2024 with a chief complaint of dysphagia and neck muscle weakness. He was recently evaluated in neurologists office who recommended patient to be admitted for management of myasthenia gravis exacerbation. Neurology is consulted and will be following closely. #Myasthenia gravis exacerbation #Dysphagia #Neck extensor weakness The patient presented with exacerbation of myasthenia gravis symptoms, dysphagia, jaw muscle weakness, neck weakness noted for about 3 weeks. Patient compliant with myasthenia gravis medications, was recently seen in neurologist office, neurology recommended admission for myasthenia gravis exacerbation. Neurology was consulted and is following closely. No respiratory muscle weakness noted, patient saturating well on room air. Patient failed swallow evaluation today, will continue to be npo and repeat eval in 24-48hrs 11/11/2024- Patient doing well, no overnight events. Continue management per neuro recommendations CT chest- no anterior mediastinal mass Plan: ? Continue Pyridostigmine 2 mg IV every 4 hours ? IVIG 400 mg/kg daily (to run for 6 hours) ? IVIG premedication: Tylenol 650 mg p.o./FL and Benadryl 25 mg IV to be given 30 minutes prior to IVIG ? Neurology consulted, appreciate recommendations ? N.p.o., aspiration precaution, speech therapy referral- possible NG tube insertion if persistently fails to fail speech eval #Parkinson's disease Follows neurology for Parkinson's, pill-rolling tremor noted left hand Plan: ?Resumed home dose pramipexole 0.5 mg 3 times daily #Seasonal allergic bronchitis No wheezing appreciated currently, patient saturating well on room air -Fluticasone salmeterol inhaler twice daily be added DVT prophylaxis: SC Heparin GI prophylaxis: IV Protonix Diet: N.p.o Lines: Peripheral IV Code status: Full code Case was discussed with Dr Turner PGY-2 and attending physician, Dr Renetta Thomas MD PGY-1 Disclaimer: This note was dictated by speech recognition. Minor errors in marine electronics technician may be present due to voice recognition software. Attending Provider Attestation/Addendum 78-year-old male with multiple comorbidities including Parkinson's and myasthenia gravis who presented on 11/09/2024 with complaints of dysphagia and neck muscle weakness found to have myasthenia gravis exacerbation subsequently started on IVIG. Plan to continue IVIG for 6 days and pyridostigmine 2 mg IV every 4 hours. Appreciate neurology input.I reviewed above note and agree with findings and plans. I have also personally examined the patient with medicine team and went over assessment and plan with medical team including internist medical doctor md and resident physician.
--- NOTE | 2024-11-11 15:34 | PC.SS ---
Rounding note: patient will be staying not ready for d/c.
[2024-11-11] MEDS: ACETAMINOPHEN 325 MG TABLET 650 MG PO (20:40)
[2024-11-11] MEDS: DiphenhydrAMINE INJ 50 MG/ML VIAL 25 MG IV (20:40)
[2024-11-11] MEDS: PRE MIXED IV (21:39)
[2024-11-11] MEDS: IMMUNE GLOB GA CA IV (21:39)
--- NOTE | 2024-11-11 23:10 | PD.NEUROPROG ---
Documentation for date of: 11/11/24 Subjective Subjective Interval history: Patient was seen in telemetry today. Continues to have neck extensor weakness and bulbar weakness causing dysphagia. Tolerating IVIG well without any side effects. Exam - Neurology Vital Signs Temp Pulse Resp BP Pulse Ox O2 Del Method 99.0 F 76 18 136/66 H 96 Room Air 11/11/24 19:59 11/11/24 19:59 11/11/24 19:59 11/11/24 19:59 11/11/24 19:59 11/11/24 19:59 Narrative Exam GENERAL APPEARANCE: Well hydrated, well-nourished in no acute distress. HEENT: Normocephalic, atraumatic, extraocular movements intact. Pupils: Equal reacting to light and accommodation NECK: Supple, no JVD or bruits. CARDIOVASULAR: Heart: S1, S2 heard, regular without S3-S4 or murmur no rubs or gallops. LUNGS/CHEST: Clear to auscultation bilaterally. No rails, rhonchi, or wheezing. Normal inspection. ABDOMEN: Soft, nontender, with normal bowel sounds. No pulsatile masses. No rebound, rigidity, or guarding. Normal inspection and palpation. EXTREMITIES: Normal inspection and palpation. No edema, clubbing or cyanosis. SKIN: Warm and dry without rashes. Normal inspection. MUSCULOSKELETAL: No cervical, thoracic, lumbar or midline bony tenderness. Normal inspection. NEURO: Alert, awake and oriented x3. Cranial nerves: II through XII grossly intact. Speech and language: Mild dysarthria secondary to bulbar weakness. Motor system: Tone and bulk: Normal: Strength: 5 out of 5 in all 4 extremities; No pronator drift noted. He has significant neck extensor weakness. Deep tendon reflexes: 1+ bilaterally symmetrical. Plantar reflex: Downgoing bilaterally. Sensory system: Intact to all modalities of sensation bilaterally. Coordination: Intact to [id number]-btzc-dhwnw and nnec-vqem-hqhh test bilaterally. No ataxia, no dysmetria, or dysdiadochokinesia noted. No intention tremors noted. Gait: Not tested. no signs of meningeal irritation noted. PSYCHIATRIC: Normal mood and affect. Objective Labs 11/11/24 04:44 11/11/24 04:44 Labs: Laboratory Results - last 24 hr 11/11/24 04:44 WBC 4.7 RBC 4.19 L Hgb 12.3 L Hct 36.3 L MCV 87 MCH 29.4 MCHC 33.9 RDW Std Deviation 40.1 Plt Count 146 Neut % (Auto) 64 Lymph % (Auto) 22 [place] % (Auto) 9 Eos % (Auto) 4 Baso % (Auto) 0 Neut # (Auto) 3.0 Lymph # (Auto) 1.0 [place] # (Auto) 0.4 Eos # (Auto) 0.2 Baso # (Auto) 0.0 Immature Gran # (Auto) 0.01 H Absolute Nucleated RBC 0.00 Immature Gran % 0 Nucleated RBC % 0 Sodium 141 Potassium 4.0 Chloride 108 H Carbon Dioxide 27.8 Anion Gap 5 L BUN 14 Creatinine 1.0 Estim Creat Clear Calc 72.0 eGFR > 60 BUN/Creatinine Ratio 14 Glucose 81 Calculated Osmolality 280 Calcium 8.7 Corrected Calcium 9.3 Phosphorus 2.9 Magnesium 1.9 Total Bilirubin 0.7 AST 13 ALT 15 Alkaline Phosphatase 70 Total Protein 6.1 Albumin 3.3 L Globulin 2.8 Albumin/Globulin Ratio 1.2 Assessment & Plan Assessment and plan (1) Myasthenia gravis with exacerbation: Status: Acute Assessment and plan: Continue with the Mestinon 2 mg IV, every 4 hours. Continue with the IVIG for 3 more days with premedications. Continue with GI and DVT prophylaxis. Hopefully his swallowing improves with time, if not will consider NGT feeding. (2) Parkinsons disease: Status: Chronic Assessment and plan: Continue with pramipexole as prescribed
[2024-11-12] VITALS (9 sets, daily range): BP systolic 115–150; BP diastolic 56–74; PULSE 61–110; RESP 17–98; TEMP 36.7–38.3; O2SAT 94–97; BMI 22.8
[2024-11-12] MEDS: RINGERS LACTATED 1000 ML 1,000 ML 75 ML IV ×2 (00:46→13:20)
[2024-11-12] MEDS: PYRIDOSTIGMINE 5 MG/ML 2 MG IV ×6 (01:44→21:01)
[2024-11-12] MEDS: PRAMIPEXOLE 0.25 MG TABLET 0.5 MG PO ×3 (05:25→21:00)
[2024-11-12 05:39] LABS: Basophils % (Auto) 0 % (0-2.5); Eosinophils # (Auto) 0.1 Thou/mm3 (0.0-0.5); Eosinophils % (Auto) 2 % (0-10); Hematocrit 40.7 % (41.0-53.0); Hemoglobin 13.8 g/dL (13.5-16.0); Immature Granulocytes % (Auto) 0 % (0-0); Immature Granulocytes Auto 0.02 Thou/mm3 (0.00-0.00); Lymphocytes # (Auto) 0.8 Thou/mm3 (1.0-4.8); Lymphocytes % (Auto) 10 % (10-50); Mean Corpuscular HGB Conc 33.9 g/dl (31.0-37.0); Mean Corpuscular Hemoglobin 29.1 pg (25.0-35.0); Mean Corpuscular Volume 86 fL (80-100); Monocytes # (Auto) 0.5 Thou/mm3 (0.0-0.8); Monocytes % (Auto) 7 % (0-12); Neutrophils % (Auto) 80 % (37-80); Nucleated Red Blood Cell % 0 /100 WBC (0); Platelet Count 152 Thou/mm3 (140-440); RDW Standard Deviation 39.1 fL (35.1-43.9); Red Blood Count 4.75 Miln/mm3 (4.50-5.90); White Blood Count 7.5 Thou/mm3 (3.8-10.6)
[2024-11-12 06:16] LABS: Alanine Aminotransferase 14 U/L (10-49); Albumin, Serum 3.5 gm/dL (3.4-4.8); Albumin/Globulin Ratio 0.9 (1.2-2.2); Alkaline Phosphatase 74 U/L (46-116); Anion Gap 6 (7-16); Aspartate Amino Transferase 20 U/L (0-34); BUN/Creatinine Ratio 12 Ratio (12-20); Bilirubin,Total 0.6 mg/dL (0.3-1.2); Blood Urea Nitrogen 12 mg/dL (9-23); Calcium 8.9 mg/dL (8.3-10.6); Calcium (Corrected) 9.3 mg/dL (8.5-10.1); Carbon Dioxide 27.2 mMol/L (20.0-31.0); Chloride 106 mMol/L (98-107); Globulin 3.7 gm/dL (2.3-3.5); Glucose 87 mg/dL (74-106); Magnesium 1.8 mg/dL (1.6-2.6); Osmolality,Calculated 276 (275-295); Phosphorous 2.3 mg/dL (2.4-5.1); Potassium 4.6 mMol/L (3.4-5.1); Sodium 139 mMol/L (136-145); Total Protein 7.2 gm/dL (5.7-8.2); eGFR > 60 See Note
[2024-11-12] MEDS: HEPARIN SOD INJ 5000 UNIT/ML VIAL SC ×2 (08:13→21:01)
[2024-11-12] MEDS: PANTOPRAZOLE INJ 40 MG VIAL IVP (08:14)
[2024-11-12] MEDS: POLYETHYLENE GLYCOL 17 GM PACKET PO (09:40)
--- NOTE | 2024-11-12 10:41 | PC.DIETICIAN ---
Nutrition prescription When indicated: Jevity 1.2 at 20 ml/hr via NG tube by pump. Advance 10 ml every 8 hrs to goal rate of 65 ml/hr x 24 hrs. If no IV fluids, water flushes of 30 ml/hr (or per MD).
--- NOTE | 2024-11-12 11:21 | PD.VPROG1 ---
Telemedicine visit statement This visit was conducted with the use of phone was obtained on 11/12/24 at 1121. Documentation for date of: 11/12/24 Subjective Subjective Interval history: Patient is in telemetry, continue to have bulbar weakness, failed swallow evaluation today as well. Continues to remain n.p.o. except medication administration with a little pudding. Virtual exam Vital Signs Temp Pulse Resp BP Pulse Ox O2 Del Method 100.9 F H 95 23 H 124/60 94 L Room Air 11/12/24 08:00 11/12/24 08:00 11/12/24 08:00 11/12/24 08:00 11/12/24 08:00 11/12/24 08:00 Objective Labs 11/12/24 04:50 11/12/24 04:50 Labs: Laboratory Results - last 24 hr 11/12/24 04:50 WBC 7.5 D RBC 4.75 Hgb 13.8 Hct 40.7 L MCV 86 MCH 29.1 MCHC 33.9 RDW Std Deviation 39.1 Plt Count 152 Neut % (Auto) 80 Lymph % (Auto) 10 [place] % (Auto) 7 Eos % (Auto) 2 Baso % (Auto) 0 Neut # (Auto) 6.0 Lymph # (Auto) 0.8 L [place] # (Auto) 0.5 Eos # (Auto) 0.1 Baso # (Auto) 0.0 Immature Gran # (Auto) 0.02 H Absolute Nucleated RBC 0.00 Immature Gran % 0 Nucleated RBC % 0 Sodium 139 Potassium 4.6 D Chloride 106 Carbon Dioxide 27.2 Anion Gap 6 L BUN 12 Creatinine 1.0 Estim Creat Clear Calc 72.0 eGFR > 60 BUN/Creatinine Ratio 12 Glucose 87 Calculated Osmolality 276 Calcium 8.9 Corrected Calcium 9.3 Phosphorus 2.3 L Magnesium 1.8 Total Bilirubin 0.6 AST 20 ALT 14 Alkaline Phosphatase 74 Total Protein 7.2 Albumin 3.5 Globulin 3.7 H Albumin/Globulin Ratio 0.9 L Assessment & Plan Problem List (1) Myasthenia gravis with exacerbation: Status: Acute Assessment and plan: CT chest ruled out residual thymic tissue continue with IV Mestinon 2 mg IV every 4 hours IV IVIG x 2 more doses with premedications Started prednisone 20 mg twice a day with close monitoring for paradoxical worsening if any Continue with GI and DVT prophylaxis, maintenance IV fluid as he is still n.p.o. and has not passed a swallow evaluation. Continue to help him with ambulation as needed (2) Parkinsons disease: Status: Chronic Assessment and plan: Continue with pramipexole
[2024-11-12] MEDS: predniSONE 20 MG TABLET PO ×2 (11:49→21:00)
--- NOTE | 2024-11-12 12:27 | PD.RESPRO ---
Documentation for date of: 11/12/24 Subjective Subjective Interval history: Patient seen at bedside. No acute overnight events. Speech eval done this morning, patient has not been cleared for a diet yet, although he has been trying crackers and small sips of water. He still wants to wait another day before opting for an NG tube. On day 3 of IVIG and mestinon. Will continue on this infusion, IV fluids and optimize nutrition. He had a fever this morning with a temp of 100.9. Although this is likely a side effect of IVIG infusion, will get a blood culture to rule out infection. Exam Vital Signs Temp Pulse Resp BP Pulse Ox O2 Del Method 100.9 F H 95 23 H 124/60 94 L Room Air 11/12/24 08:00 11/12/24 08:00 11/12/24 08:00 11/12/24 08:00 11/12/24 08:00 11/12/24 08:00 Narrative Exam GENERAL: AAOX3, sitting in bed comfortably NEURO: ROD BUSTER grossly intact. Resting tremors more significant to the left, upper extremity strength preserved-5/5, lower extremity strength-3/5, reflexes decreased bilaterally HEENT: Moist mucosa. Eyes open, symmetrical, & clear CARDIO: No chest pain on palpation. Heart RRR, no obvious murmurs PULM: No noted coughing/dyspnea. Lungs CTA B/L GI: Abdomen soft, nondistended, no pain on palpation. BSx4 URO/PUBLIC HEALTH SERVICE OFFICER:: No further abnormalities noted. SKIN/MSK/EXT: Weakness in the neck extensor muscles Objective Labs 11/14/24 04:54 11/14/24 04:54 Labs: Laboratory Results - last 24 hr 11/12/24 04:50 WBC 7.5 D RBC 4.75 Hgb 13.8 Hct 40.7 L MCV 86 MCH 29.1 MCHC 33.9 RDW Std Deviation 39.1 Plt Count 152 Neut % (Auto) 80 Lymph % (Auto) 10 [place] % (Auto) 7 Eos % (Auto) 2 Baso % (Auto) 0 Neut # (Auto) 6.0 Lymph # (Auto) 0.8 L [place] # (Auto) 0.5 Eos # (Auto) 0.1 Baso # (Auto) 0.0 Immature Gran # (Auto) 0.02 H Absolute Nucleated RBC 0.00 Immature Gran % 0 Nucleated RBC % 0 Sodium 139 Potassium 4.6 D Chloride 106 Carbon Dioxide 27.2 Anion Gap 6 L BUN 12 Creatinine 1.0 Estim Creat Clear Calc 72.0 eGFR > 60 BUN/Creatinine Ratio 12 Glucose 87 Calculated Osmolality 276 Calcium 8.9 Corrected Calcium 9.3 Phosphorus 2.3 L Magnesium 1.8 Total Bilirubin 0.6 AST 20 ALT 14 Alkaline Phosphatase 74 Total Protein 7.2 Albumin 3.5 Globulin 3.7 H Albumin/Globulin Ratio 0.9 L Quality Measures Quality Measures VTE prophylaxis Advance care planning discussed with:: patient Assessment & Plan Assessment Current Active Medications: Generic Name Dose Route Start Last Admin Trade Name Freq PRN Reason Stop Dose Admin Acetaminophen 650 mg 11/09/24 20:30 11/11/24 20:40 Acetaminophen 325 Mg Tablet PO 11/13/24 20:31 650 mg QDAY@2029 [place]IGH Administration Acetaminophen 650 mg 11/09/24 21:26 Acetaminophen 325 Mg Tablet PO 12/09/24 21:25 Q6H PRN Mild Pain (1-3 & Fever >101.5 Diphenhydramine HCl 25 mg 11/09/24 20:30 11/11/24 20:40 Diphenhydramine Inj 50 Mg/Ml Vial IV 11/13/24 20:31 25 mg QDAY@2030 H[facility]IGH Administration Heparin Sodium (Porcine) 5,000 unit 11/10/24 09:00 11/12/24 08:13 Heparin Sod Inj 5000 Unit/Ml Vial SC 11/24/24 08:59 5,000 unit Q12HR [facility]IGH Administration Immune Globulin 20 gm/ Immune 300 mls @ 50 mls/hr 11/09/24 21:00 11/11/24 21:39 Globulin 10 gm/ IV IV 11/14/24 02:59 50 mls/hr Miscellaneous Supplies QDAY@2100 H[facility]IGH Administration Lactated Ringer's 1,000 mls @ 75 mls/hr 11/11/24 10:30 11/12/24 00:46 Lactated Ringers IV 12/10/24 10:29 75 mls/hr .[id number] H[facility]IGH Administration Pantoprazole Sodium 40 mg 11/10/24 09:00 11/12/24 08:14 Pantoprazole Inj 40 Mg Vial IVP 12/10/24 08:59 40 mg QDAY [facility] Administration Polyethylene Glycol 17 gm 11/12/24 09:00 11/12/24 09:40 Polyethylene Glycol 17 Gm Packet PO 12/12/24 08:59 17 gm QDAY [facility] Administration Pramipexole Dihydrochloride 0.5 mg 11/10/24 06:00 11/12/24 05:25 Pramipexole 0.25 Mg Tablet PO 12/10/24 05:59 0.5 mg TID [facility] Administration Prednisone 20 mg 11/12/24 11:30 11/12/24 11:49 Prednisone 20 Mg Tablet PO 11/19/24 11:17 20 mg BID [facility] Administration Pyridostigmine [place] 2 mg 11/11/24 10:00 11/12/24 09:39 Pyridostigmine Inj 5 Mg/Ml Amp 2 Ml IV 12/11/24 09:59 2 mg Q4HR H[facility]IGH Administration Fluticasone/Salmeterol 1 puff 11/09/24 21:16 Fluticasone/Salmeterol 100/50 14 Dose Inh INH 12/10/24 06:59 BIDRT PRN SOB/Wheeze Plan Summary: The patient is a 78-year-old male with past medical history of myasthenia gravis, Parkinson's disease and allergic seasonal bronchitis who presented to [facility] on 11/09/2024 with a chief complaint of dysphagia and neck muscle weakness. He was recently evaluated in neurologists office who recommended patient to be admitted for management of myasthenia gravis exacerbation. Neurology is consulted and will be following closely. #Myasthenia gravis exacerbation #Dysphagia #Neck extensor weakness The patient presented with exacerbation of myasthenia gravis symptoms, dysphagia, jaw muscle weakness, neck weakness noted for about 3 weeks. Patient compliant with myasthenia gravis medications, was recently seen in neurologist office, neurology recommended admission for myasthenia gravis exacerbation. Neurology was consulted and is following closely. No respiratory muscle weakness noted, patient saturating well on room air. Patient failed swallow evaluation today, will continue to be npo and repeat eval in 24-48hrs 11/12/2024- Patient doing well, no overnight events. Continue management per neuro recommendations CT chest- no anterior mediastinal mass Plan: ? Continue Pyridostigmine 2 mg IV every 4 hours ? IVIG 400 mg/kg daily (to run for 6 hours) ? IVIG premedication: Tylenol 650 mg p.o./MS and Benadryl 25 mg IV to be given 30 minutes prior to IVIG ? Neurology consulted, appreciate recommendations ? N.p.o., aspiration precaution, speech therapy referral- possible NG tube insertion if persistently fails to fail speech eval #Fever, likely reactive Patient had a temperature of 100.9 this morning. This is likely a side effect of IVIG infusions, however will obtain blood cultures to rule out infectious causes. Plan: -Blood culture #Parkinson's disease Follows neurology for Parkinson's, pill-rolling tremor noted left hand Plan: ?Resumed home dose pramipexole 0.5 mg 3 times daily #Seasonal allergic bronchitis No wheezing appreciated currently, patient saturating well on room air -Fluticasone salmeterol inhaler twice daily be added DVT prophylaxis: SC Heparin GI prophylaxis: IV Protonix Diet: N.p.o Lines: Peripheral IV Code status: Full code Case was discussed with attending physician, Dr Renetta Thomas MD PGY-1 Disclaimer: This note was dictated by speech recognition. Minor errors in engineering tech may be present due to voice recognition software. Attending Provider Attestation/Addendum 78-year-old male with multiple comorbidities including Parkinson's and myasthenia gravis who presented on 11/09/2024 with complaints of dysphagia and neck muscle weakness found to have myasthenia gravis exacerbation subsequently started on IVIG. Plan to continue IVIG for 6 days and pyridostigmine 2 mg IV every 4 hours. Appreciate neurology input.I reviewed above note and agree with findings and plans. I have also personally examined the patient with medicine team and went over assessment and plan with medical team including internet marketing intern and resident physician.
[2024-11-12] MEDS: ACETAMINOPHEN 325 MG TABLET 650 MG PO (20:59)
[2024-11-12] MEDS: DiphenhydrAMINE INJ 50 MG/ML VIAL 25 MG IV (21:00)
[2024-11-12] MEDS: IMMUNE GLOB GA CA IV (21:43)
[2024-11-12] MEDS: PRE MIXED IV (21:43)
[2024-11-13] VITALS (7 sets, daily range): BP systolic 134–150; BP diastolic 65–79; PULSE 55–81; RESP 11–98; TEMP 36.1–36.4; O2SAT 96–99
[2024-11-13] MEDS: PYRIDOSTIGMINE 5 MG/ML 2 MG IV ×2 (01:35→05:50)
[2024-11-13] MEDS: PRAMIPEXOLE 0.25 MG TABLET 0.5 MG PO ×3 (05:50→21:18)
[2024-11-13] MEDS: RINGERS LACTATED 1000 ML 1,000 ML 75 ML IV (05:51)
[2024-11-13 05:57] LABS: Basophils % (Auto) 0 % (0-2.5); Eosinophils % (Auto) 0 % (0-10); Hematocrit 39.7 % (41.0-53.0); Hemoglobin 13.8 g/dL (13.5-16.0); Immature Granulocytes % (Auto) 0 % (0-0); Immature Granulocytes Auto 0.01 Thou/mm3 (0.00-0.00); Lymphocytes # (Auto) 0.7 Thou/mm3 (1.0-4.8); Lymphocytes % (Auto) 16 % (10-50); Mean Corpuscular HGB Conc 34.8 g/dl (31.0-37.0); Mean Corpuscular Hemoglobin 29.2 pg (25.0-35.0); Mean Corpuscular Volume 84 fL (80-100); Monocytes # (Auto) 0.2 Thou/mm3 (0.0-0.8); Monocytes % (Auto) 4 % (0-12); Neutrophils # (Auto) 3.7 Thou/mm3 (1.8-7.7); Neutrophils % (Auto) 80 % (37-80); Nucleated Red Blood Cell % 0 /100 WBC (0); Platelet Count 143 Thou/mm3 (140-440); RDW Standard Deviation 38.6 fL (35.1-43.9); Red Blood Count 4.73 Miln/mm3 (4.50-5.90); White Blood Count 4.6 Thou/mm3 (3.8-10.6)
[2024-11-13 06:27] LABS: Alanine Aminotransferase 15 U/L (10-49); Albumin, Serum 3.3 gm/dL (3.4-4.8); Albumin/Globulin Ratio 0.8 (1.2-2.2); Alkaline Phosphatase 69 U/L (46-116); Anion Gap 6 (7-16); Aspartate Amino Transferase 18 U/L (0-34); BUN/Creatinine Ratio 14 Ratio (12-20); Bilirubin,Total 0.5 mg/dL (0.3-1.2); Blood Urea Nitrogen 13 mg/dL (9-23); Calcium 9.3 mg/dL (8.3-10.6); Calcium (Corrected) 9.9 mg/dL (8.5-10.1); Carbon Dioxide 26.8 mMol/L (20.0-31.0); Chloride 105 mMol/L (98-107); Creatinine (Component) 0.9 mg/dL (0.6-1.3); Glucose 117 mg/dL (74-106); Osmolality,Calculated 276 (275-295); Potassium 4.6 mMol/L (3.4-5.1); Sodium 138 mMol/L (136-145); Total Protein 7.3 gm/dL (5.7-8.2); eGFR > 60 See Note
[2024-11-13 07:36] LABS: Magnesium 1.9 mg/dL (1.6-2.6); Phosphorous 2.9 mg/dL (2.4-5.1)
[2024-11-13] MEDS: PANTOPRAZOLE INJ 40 MG VIAL IVP (08:26)
[2024-11-13] MEDS: POLYETHYLENE GLYCOL 17 GM PACKET PO (08:26)
[2024-11-13] MEDS: predniSONE 20 MG TABLET PO ×2 (08:27→21:18)
[2024-11-13] MEDS: HEPARIN SOD INJ 5000 UNIT/ML VIAL SC ×2 (08:27→21:19)
--- NOTE | 2024-11-13 10:43 | PC.NURSE ---
This nurse conducted a nursing swallow evaluation with patient using mashed potatoes and no liquid at the request of Dr Hazel. Patient was able to adequetely swallow the food but his muscles quickly tired and would require breaks in between eating.
--- NOTE | 2024-11-13 11:58 | ESPR_ITS ---
<Statement entered by Ezequiel Turner MD - 11/14/24 11:36> Senior Resident Attestation: I supervised/discussed management plan with quality assurance intern physician Dr. Thomas, and was involved in the care of this patient. I personally saw and examined the patient and discussed the assessment and plan with the entire medicine team, including my attending. I agree with the assessment and plan as documented. Patient's care was discussed with attending physician, Dr. Jackson. Ezequiel Turner MD PGY-2. Documentation for date of: 11/13/24 Subjective Subjective Interval history: Patient seen at bedside. No acute overnight events. Patient is willing to try a special diet of mashed potatoes as he is able to tolerate thicker consistencies, including putting that he takes his medications. Touched base with neurology, okay to feed patient cautiously and watched. Added prednisone 20 mg twice daily Otherwise, patient has remained afebrile and is on day 5 of IVIG infusion. Exam Vital Signs Temp Pulse Resp BP Pulse Ox O2 Del Method 97.5 F 58 L 18 139/73 H 99 Room Air 11/13/24 08:00 11/13/24 08:00 11/13/24 08:00 11/13/24 08:00 11/13/24 08:00 11/13/24 08:00 Narrative Exam GENERAL: AAOX3, sitting in bed comfortably NEURO: COOK FRUIT grossly intact. Resting tremors more significant to the left, upper extremity strength preserved-5/5, lower extremity strength-3/5, reflexes decreased bilaterally HEENT: Moist mucosa. Eyes open, symmetrical, & clear CARDIO: No chest pain on palpation. Heart RRR, no obvious murmurs PULM: No noted coughing/dyspnea. Lungs CTA B/L GI: Abdomen soft, nondistended, no pain on palpation. BSx4 URO/DIRECTOR TECHNICAL:: No further abnormalities noted. SKIN/MSK/EXT: Weakness in the neck extensor muscles Objective Labs 11/14/24 04:54 11/14/24 04:54 Labs: Laboratory Results - last 24 hr 11/13/24 04:50 WBC 4.6 RBC 4.73 Hgb 13.8 Hct 39.7 L MCV 84 MCH 29.2 MCHC 34.8 RDW Std Deviation 38.6 Plt Count 143 Neut % (Auto) 80 Lymph % (Auto) 16 [place] % (Auto) 4 Eos % (Auto) 0 Baso % (Auto) 0 Neut # (Auto) 3.7 Lymph # (Auto) 0.7 L [place] # (Auto) 0.2 Eos # (Auto) 0.0 Baso # (Auto) 0.0 Immature Gran # (Auto) 0.01 H Absolute Nucleated RBC 0.00 Immature Gran % 0 Nucleated RBC % 0 Sodium 138 Potassium 4.6 Chloride 105 Carbon Dioxide 26.8 Anion Gap 6 L BUN 13 Creatinine 0.9 Estim Creat Clear Calc 80.0 eGFR > 60 BUN/Creatinine Ratio 14 Glucose 117 H Calculated Osmolality 276 Calcium 9.3 Corrected Calcium 9.9 Phosphorus 2.9 Magnesium 1.9 Total Bilirubin 0.5 AST 18 ALT 15 Alkaline Phosphatase 69 Total Protein 7.3 Albumin 3.3 L Globulin 4.0 H Albumin/Globulin Ratio 0.8 L Quality Measures Quality Measures VTE prophylaxis Advance care planning discussed with:: patient Assessment & Plan Assessment Current Active Medications: Generic Name Dose Route Start Last Admin Trade Name Freq PRN Reason Stop Dose Admin Acetaminophen 650 mg 11/09/24 20:30 11/12/24 20:59 Acetaminophen 325 Mg Tablet PO 11/13/24 20:31 650 mg QDAY@2029 H[place]IGH Administration Acetaminophen 650 mg 11/09/24 21:26 Acetaminophen 325 Mg Tablet PO 12/09/24 21:25 Q6H PRN Mild Pain (1-3 & Fever >101.5 Diphenhydramine HCl 25 mg 11/09/24 20:30 11/12/24 21:00 Diphenhydramine Inj 50 Mg/Ml Vial IV 11/13/24 20:31 25 mg QDAY@2030 HALEIGH Administration Heparin Sodium (Porcine) 5,000 unit 11/10/24 09:00 11/13/24 08:27 Heparin Sod Inj 5000 Unit/Ml Vial SC 11/24/24 08:59 5,000 unit Q12HR [place] Administration Hydralazine HCl 10 mg 11/13/24 07:29 Hydralazine Hcl 10 Mg Tablet PO 12/13/24 07:28 Q6HR PRN SBP>160 Immune Globulin 20 gm/ Immune 300 mls @ 50 mls/hr 11/09/24 21:00 11/12/24 21:43 Globulin 10 gm/ IV IV 11/14/24 02:59 50 mls/hr Miscellaneous Supplies QDAY@2100 [place] Administration Lactated Ringer's 1,000 mls @ 75 mls/hr 11/11/24 10:30 11/13/24 05:51 Lactated Ringers IV 12/10/24 10:29 75 mls/hr .[id number] [facility] Administration Pantoprazole Sodium 40 mg 11/10/24 09:00 11/13/24 08:26 Pantoprazole Inj 40 Mg Vial IVP 12/10/24 08:59 40 mg QDAY [place] Administration Polyethylene Glycol 17 gm 11/12/24 09:00 11/13/24 08:26 Polyethylene Glycol 17 Gm Packet PO 12/12/24 08:59 17 gm QDAY [place] Administration Pramipexole Dihydrochloride 0.5 mg 11/10/24 06:00 11/13/24 05:50 Pramipexole 0.25 Mg Tablet PO 12/10/24 05:59 0.5 mg TID [place] Administration Prednisone 20 mg 11/12/24 11:30 11/13/24 08:27 Prednisone 20 Mg Tablet PO 11/19/24 11:17 20 mg BID [place] Administration Pyridostigmine [place] 2 mg 11/11/24 10:00 11/13/24 11:10 Pyridostigmine Inj 5 Mg/Ml Amp 2 Ml IV 12/11/24 09:59 Not Given Q4HR HALEIGH Fluticasone/Salmeterol 1 puff 11/09/24 21:16 Fluticasone/Salmeterol 100/50 14 Dose Inh INH 12/10/24 06:59 BIDRT PRN SOB/Wheeze Plan Summary: The patient is a 78-year-old male with past medical history of myasthenia gravis, Parkinson's disease and allergic seasonal bronchitis who presented to [facility] on 11/09/2024 with a chief complaint of dysphagia and neck muscle weakness. He was recently evaluated in neurologists office who recommended patient to be admitted for management of myasthenia gravis exacerbation. Neurology is consulted and will be following closely. #Myasthenia gravis exacerbation #Dysphagia #Neck extensor weakness The patient presented with exacerbation of myasthenia gravis symptoms, dysphagia, jaw muscle weakness, neck weakness noted for about 3 weeks. Patient compliant with myasthenia gravis medications, was recently seen in neurologist office, neurology recommended admission for myasthenia gravis exacerbation. Neurology was consulted and is following closely. No respiratory muscle weakness noted, patient saturating well on room air. Patient failed swallow evaluation today, will continue to be npo and repeat eval in 24-48hrs CT chest- no anterior mediastinal mass 11/13/2024- Patient doing well, no overnight events. Continue management per neuro recommendations, added prednisone 20 mg daily Will cautiously feed patient today with thicker consistency and nurse swallow screen. Continue IV fluids in the interim. Plan: ? Continue Pyridostigmine 2 mg IV every 4 hours ? IVIG 400 mg/kg daily (to run for 6 hours) ? IVIG premedication: Tylenol 650 mg p.o./MS and Benadryl 25 mg IV to be given 30 minutes prior to IVIG - Prednisone 20 mg daily ? Neurology consulted, appreciate recommendations #Parkinson's disease Follows neurology for Parkinson's, pill-rolling tremor noted left hand Plan: ?Resumed home dose pramipexole 0.5 mg 3 times daily #Seasonal allergic bronchitis No wheezing appreciated currently, patient saturating well on room air -Fluticasone salmeterol inhaler twice daily be added DVT prophylaxis: SC Heparin GI prophylaxis: IV Protonix Diet: N.p.o Lines: Peripheral IV Code status: Full code Case was discussed with Dr Turner PGY-2 and attending physician, Dr Renetta Thomas MD PGY-1 Disclaimer: This note was dictated by speech recognition. Minor errors in brand planner may be present due to voice recognition software. Attending Provider Attestation/Addendum 78-year-old male with multiple comorbidities including Parkinson's and myasthenia gravis who presented on 11/09/2024 with complaints of dysphagia and neck muscle weakness found to have myasthenia gravis exacerbation subsequently started on IVIG. Plan to continue IVIG for 6 days and pyridostigmine 2 mg IV every 4 hours. Overnight, patient states that he feels better however still n.p.o. as there is a concern for dysphagia and thus risk for aspiration. Appreciate neurology input.I reviewed above note and agree with findings and plans. I have also personally examined the patient with medicine team and went over assessment and plan with medical team including quality assurance intern and resident physician.
--- NOTE | 2024-11-13 12:30 | PC.NURSE ---
Notified Dr Hazel that patient medication Regonol is out of stock in pharmacy and on order. will consult with team. No new orders.
[2024-11-13] MEDS: pyRIDostigmine bromide 60 MG TABLET PO ×3 (14:12→21:19)
--- NOTE | 2024-11-13 18:33 | PD.VPROG1 ---
Telemedicine visit statement This visit was conducted with the use of phone was obtained on 11/13/24 at 1833. Documentation for date of: 11/13/24 Subjective Subjective Interval history: Patient is in telemetry, continue to have bulbar weakness, failed swallow evaluation today as well. Continues to remain n.p.o. except medication administration with a little pudding. Virtual exam Vital Signs Temp Pulse Resp BP Pulse Ox O2 Del Method 97.2 F 78 19 134/70 H 97 Room Air 11/13/24 16:00 11/13/24 16:00 11/13/24 16:00 11/13/24 16:00 11/13/24 16:00 11/13/24 16:00 Objective Labs 11/15/24 05:18 11/15/24 05:18 Labs: Laboratory Results - last 24 hr 11/13/24 04:50 WBC 4.6 RBC 4.73 Hgb 13.8 Hct 39.7 L MCV 84 MCH 29.2 MCHC 34.8 RDW Std Deviation 38.6 Plt Count 143 Neut % (Auto) 80 Lymph % (Auto) 16 [place] % (Auto) 4 Eos % (Auto) 0 Baso % (Auto) 0 Neut # (Auto) 3.7 Lymph # (Auto) 0.7 L [place] # (Auto) 0.2 Eos # (Auto) 0.0 Baso # (Auto) 0.0 Immature Gran # (Auto) 0.01 H Absolute Nucleated RBC 0.00 Immature Gran % 0 Nucleated RBC % 0 Sodium 138 Potassium 4.6 Chloride 105 Carbon Dioxide 26.8 Anion Gap 6 L BUN 13 Creatinine 0.9 Estim Creat Clear Calc 80.0 eGFR > 60 BUN/Creatinine Ratio 14 Glucose 117 H Calculated Osmolality 276 Calcium 9.3 Corrected Calcium 9.9 Phosphorus 2.9 Magnesium 1.9 Total Bilirubin 0.5 AST 18 ALT 15 Alkaline Phosphatase 69 Total Protein 7.3 Albumin 3.3 L Globulin 4.0 H Albumin/Globulin Ratio 0.8 L Assessment & Plan Problem List (1) Myasthenia gravis with exacerbation: Status: Acute Assessment and plan: CT chest ruled out residual thymic tissue continue with PO Mestinon 60 mg every 4 hours IV IVIG x 1 more dose with premedications Prednisone 20 mg twice a day with close monitoring for paradoxical worsening if any Continue with GI and DVT prophylaxis, maintenance IV fluid as he is still n.p.o. and has not passed a swallow evaluation. Continue to help him with ambulation as needed (2) Parkinsons disease: Status: Chronic Assessment and plan: Continue with pramipexole
[2024-11-13] MEDS: DiphenhydrAMINE INJ 50 MG/ML VIAL 25 MG IV (20:26)
[2024-11-13] MEDS: ACETAMINOPHEN 325 MG TABLET 650 MG PO (20:26)
[2024-11-13] MEDS: IMMUNE GLOB GA CA IV (21:12)
[2024-11-13] MEDS: PRE MIXED IV (21:12)
[2024-11-14] VITALS (11 sets, daily range): BP systolic 126–152; BP diastolic 65–81; PULSE 37–60; RESP 12–21; TEMP 36.2–36.8; O2SAT 95–98
[2024-11-14] MEDS: pyRIDostigmine bromide 60 MG TABLET PO ×5 (01:10→17:42)
[2024-11-14 05:48] LABS: Basophils % (Auto) 0 % (0-2.5); Eosinophils % (Auto) 0 % (0-10); Hematocrit 38.6 % (41.0-53.0); Hemoglobin 13.4 g/dL (13.5-16.0); Immature Granulocytes % (Auto) 0 % (0-0); Immature Granulocytes Auto 0.01 Thou/mm3 (0.00-0.00); Lymphocytes % (Auto) 17 % (10-50); Mean Corpuscular HGB Conc 34.7 g/dl (31.0-37.0); Mean Corpuscular Hemoglobin 29.3 pg (25.0-35.0); Mean Corpuscular Volume 85 fL (80-100); Monocytes # (Auto) 0.3 Thou/mm3 (0.0-0.8); Monocytes % (Auto) 4 % (0-12); Neutrophils # (Auto) 4.7 Thou/mm3 (1.8-7.7); Neutrophils % (Auto) 79 % (37-80); Nucleated Red Blood Cell % 0 /100 WBC (0); Platelet Count 161 Thou/mm3 (140-440); RDW Standard Deviation 39.1 fL (35.1-43.9); Red Blood Count 4.57 Miln/mm3 (4.50-5.90)
[2024-11-14] MEDS: PRAMIPEXOLE 0.25 MG TABLET 0.5 MG PO ×3 (06:12→21:22)
[2024-11-14] MEDS: RINGERS LACTATED 1000 ML 1,000 ML 75 ML IV (06:15)
[2024-11-14 06:30] LABS: Alanine Aminotransferase 33 U/L (10-49); Albumin, Serum 3.4 gm/dL (3.4-4.8); Albumin/Globulin Ratio 0.8 (1.2-2.2); Alkaline Phosphatase 64 U/L (46-116); Anion Gap 6 (7-16); Aspartate Amino Transferase 31 U/L (0-34); BUN/Creatinine Ratio 17 Ratio (12-20); Bilirubin,Total 0.3 mg/dL (0.3-1.2); Blood Urea Nitrogen 15 mg/dL (9-23); Calcium 8.9 mg/dL (8.3-10.6); Calcium (Corrected) 9.4 mg/dL (8.5-10.1); Carbon Dioxide 27.9 mMol/L (20.0-31.0); Chloride 107 mMol/L (98-107); Creatinine (Component) 0.9 mg/dL (0.6-1.3); Globulin 4.3 gm/dL (2.3-3.5); Glucose 135 mg/dL (74-106); Osmolality,Calculated 284 (275-295); Potassium 4.1 mMol/L (3.4-5.1); Sodium 141 mMol/L (136-145); Total Protein 7.7 gm/dL (5.7-8.2); eGFR > 60 See Note
[2024-11-14] MEDS: PANTOPRAZOLE INJ 40 MG VIAL IVP (09:07)
[2024-11-14] MEDS: predniSONE 20 MG TABLET PO ×2 (09:07→21:22)
[2024-11-14] MEDS: HEPARIN SOD INJ 5000 UNIT/ML VIAL SC ×2 (09:07→21:23)
[2024-11-14 10:08] LABS: Magnesium 1.9 mg/dL (1.6-2.6)
--- NOTE | 2024-11-14 10:19 | EKG_ITS ---
[facility] Test Date: 2024-11-14 Pat Name: JOSE CARLOS PLUNKETT Department: Room: [facility] [email or web address] Gender: Male Osteopathic Neurologist: JUAN A : 1945 Requested By: Ever Ndiaye Order Number: [id number] Reading MD: Ever Ndiaye Measurements Intervals [place] Rate: 48 P: 35 [place]: 175 QRS: 44 QRSD: 94 T: 57 QT: 453 QTc: 408 Interpretive Statements SINUS BRADYCARDIA MARKED ST ELEVATION, CONSIDER INFERIOR INJURY ACUTE [place] Compared to ECG 11/09/2024 21:59:48 ST (T wave) deviation now present Myocardial infarct finding now present Sinus rhythm no longer present /store/S0/[id number]
[2024-11-14] MEDS: Magnesium Sulfate 1 gm Ivpb 1 GM/100 ML BAG IV (11:03)
[2024-11-14] MEDS: hydrALAZINE HCL 10 MG TABLET PO (12:20)
--- NOTE | 2024-11-14 16:23 | ESPR_ITS ---
Documentation for date of: 11/14/24 Subjective Subjective Interval history: 11/14/2024: Patient reports he is doing well and examined at bedside. No acute overnight events. Patient reports that he nippled on some of his dinner yesterday, and ate his entire snack yesterday, however he does not remember what snack was given. He says he slept well. He is trying to eat more and advance his diet. Is wondering when he is in a go home. No other complaints at this time Exam Vital Signs Temp Pulse Resp BP Pulse Ox O2 Del Method 97.2 F 37 L 19 141/69 H 97 Room Air 11/14/24 12:00 11/14/24 14:00 11/14/24 12:00 11/14/24 12:20 11/14/24 12:00 11/14/24 12:00 Narrative Exam GENERAL: AAOX3, sitting in bed comfortably NEURO: IMCU NURSE grossly intact. Resting tremors more significant to the left, upper extremity strength preserved-5/5, lower extremity strength-3/5, reflexes decreased bilaterally HEENT: Moist mucosa. Eyes open, symmetrical, & clear CARDIO: No chest pain on palpation. Heart RRR, no obvious murmurs PULM: No noted coughing/dyspnea. Lungs CTA B/L GI: Abdomen soft, nondistended, no pain on palpation. BSx4 URO/SOFTWARE ENGINEERING SPECIALIST:: No further abnormalities noted. SKIN/MSK/EXT: Weakness in the neck extensor muscles Objective Labs 11/15/24 05:18 11/15/24 05:18 Labs: Laboratory Results - last 24 hr 11/14/24 04:54 WBC 6.0 RBC 4.57 Hgb 13.4 L Hct 38.6 L MCV 85 MCH 29.3 MCHC 34.7 RDW Std Deviation 39.1 Plt Count 161 Neut % (Auto) 79 Lymph % (Auto) 17 [place] % (Auto) 4 Eos % (Auto) 0 Baso % (Auto) 0 Neut # (Auto) 4.7 Lymph # (Auto) 1.0 [place] # (Auto) 0.3 Eos # (Auto) 0.0 Baso # (Auto) 0.0 Immature Gran # (Auto) 0.01 H Absolute Nucleated RBC 0.00 Immature Gran % 0 Nucleated RBC % 0 Sodium 141 Potassium 4.1 D Chloride 107 Carbon Dioxide 27.9 Anion Gap 6 L BUN 15 Creatinine 0.9 Estim Creat Clear Calc 80.0 eGFR > 60 BUN/Creatinine Ratio 17 Glucose 135 H Calculated Osmolality 284 Calcium 8.9 Corrected Calcium 9.4 Magnesium 1.9 Total Bilirubin 0.3 AST 31 ALT 33 Alkaline Phosphatase 64 Total Protein 7.7 Albumin 3.4 Globulin 4.3 H Albumin/Globulin Ratio 0.8 L Quality Measures Quality Measures VTE prophylaxis Advance care planning discussed with:: patient Assessment & Plan Assessment Current Active Medications: Generic Name Dose Route Start Last Admin Trade Name Freq PRN Reason Stop Dose Admin Acetaminophen 650 mg 11/09/24 21:26 Acetaminophen 325 Mg Tablet PO 12/09/24 21:25 Q6H PRN Mild Pain (1-3 & Fever >101.5 Heparin Sodium (Porcine) 5,000 unit 11/10/24 09:00 11/14/24 09:07 Heparin Sod Inj 5000 Unit/Ml Vial SC 11/24/24 08:59 5,000 unit Q12HR H[facility]IGH Administration Hydralazine HCl 10 mg 11/13/24 07:29 11/14/24 12:20 Hydralazine Hcl 10 Mg Tablet PO 12/13/24 07:28 10 mg Q6HR PRN Administration SBP>160 Lactated Ringer's 1,000 mls @ 75 mls/hr 11/11/24 10:30 11/14/24 06:15 Lactated Ringers IV 12/10/24 10:29 75 mls/hr .[id number] HALEIGH Administration Pantoprazole Sodium 40 mg 11/10/24 09:00 11/14/24 09:07 Pantoprazole Inj 40 Mg Vial IVP 12/10/24 08:59 40 mg QDAY H[facility]IGH Administration Polyethylene Glycol 17 gm 11/12/24 09:00 11/14/24 09:09 Polyethylene Glycol 17 Gm Packet PO 12/12/24 08:59 Not Given QDAY H[facility]IGH Pramipexole Dihydrochloride 0.5 mg 11/10/24 06:00 11/14/24 13:24 Pramipexole 0.25 Mg Tablet PO 12/10/24 05:59 0.5 mg TID [facility]IGH Administration Prednisone 20 mg 11/12/24 11:30 11/14/24 09:07 Prednisone 20 Mg Tablet PO 11/19/24 11:17 20 mg BID H[facility]IGH Administration Pyridostigmine [place] 2 mg 11/11/24 10:00 11/13/24 11:10 Pyridostigmine Inj 5 Mg/Ml Amp 2 Ml IV 12/11/24 09:59 Not Given Q4HR [facility]IGH Pyridostigmine [place] 60 mg 11/14/24 13:00 11/14/24 13:25 Pyridostigmine [place] 60 Mg Tablet PO 12/14/24 12:59 60 mg Q6HR HALEIGH Administration Fluticasone/Salmeterol 1 puff 11/09/24 21:16 Fluticasone/Salmeterol 100/50 14 Dose Inh INH 12/10/24 06:59 BIDRT PRN SOB/Wheeze Plan LSummary: The patient is a 78-year-old male with past medical history of myasthenia gravis, Parkinson's disease and allergic seasonal bronchitis who presented to [facility] on 11/09/2024 with a chief complaint of dysphagia and neck muscle weakness. He was recently evaluated in neurologists office who recommended patient to be admitted for management of myasthenia gravis exacerbation. Neurology is consulted and will be following closely. #Myasthenia gravis exacerbation #Dysphagia #Neck extensor weakness The patient presented with exacerbation of myasthenia gravis symptoms, dysphagia, jaw muscle weakness, neck weakness noted for about 3 weeks. Patient compliant with myasthenia gravis medications, was recently seen in neurologist office, neurology recommended admission for myasthenia gravis exacerbation. Neurology was consulted and is following closely. No respiratory muscle weakness noted, patient saturating well on room air. Patient failed swallow evaluation today, will continue to be npo and repeat eval in 24-48hrs CT chest- no anterior mediastinal mass 11/13/2024- Patient doing well, no overnight events. Continue management per neuro recommendations, added prednisone 20 mg daily Will cautiously feed patient today with thicker consistency and nurse swallow screen. Continue IV fluids in the interim Will continue advance diet and see how patient tolerates p.o. May need PEG if he does not improve. Plan: ? Continue Pyridostigmine 2 mg IV every 4 hours ? IVIG 400 mg/kg daily (to run for 6 hours) ? IVIG premedication: Tylenol 650 mg p.o./MN and Benadryl 25 mg IV to be given 30 minutes prior to IVIG - Prednisone 20 mg daily ? Neurology consulted, appreciate recommendations #Parkinson's disease Follows neurology for Parkinson's, pill-rolling tremor noted left hand Plan: ?Resumed home dose pramipexole 0.5 mg 3 times daily #Seasonal allergic bronchitis No wheezing appreciated currently, patient saturating well on room air -Fluticasone salmeterol inhaler twice daily be added #Health maintenance DVT prophylaxis: SC Heparin/ GI prophylaxis: IV Protonix Diet: N.p.o Lines: Peripheral IV Code status: Full code Patient seen and care discussed with my senior resident, Dr. Hazel, and my attending physician, Dr. Renetta Ndiaye, PGY-1 LMr. Arslan is a pleasant 78-year-old male admitted for severe dysphagia due to bulbar weakness in the setting of myasthenia gravis and Parkinson's disease. Neurology was consulted, recommendations appreciated. Patient has been on IVIG infusions for 4 days. Unable to get official swallow evaluation by speech therapist, however patient passed her swallow screen at bedside. Dysphagia 1 diet started, patient endorses being able to assess his own swallowing ability, is using suctioning at bedside, however is tolerating diet very well. Physical therapy ordered, as per evaluation may need SNF, however patient declines as he is the only care provider for his . Home health referral requested for PT at home. All other home medications started as per neurology recommendations for management of Parkinson's and myasthenia gravis. Patient did have bradycardia with heart rate 30-40 bpm, which has now resolved and heart rate trending 70-80 bpm. Plan: We will advance diet as tolerated, pending further evaluation by neurologist Dr Muñoz. We will continue daily PT. Anticipate discharge in the next 24-48 hours. Patient examined and case discussed with the team including attending physician. Note reviewed, I agree with the care plan as documented. - Bryce Hazel MD, PGY 2 L Attending Provider Attestation/Addendum
[2024-11-15] VITALS (11 sets, daily range): BP systolic 142–163; BP diastolic 67–81; PULSE 39–106; RESP 17–20; TEMP 36.1–36.6; O2SAT 95–98; BMI 22.8
--- NOTE | 2024-11-15 | PD.NEUROPROG ---
Documentation for date of: 11/14/24 Subjective Subjective Interval history: Patient was seen in telemetry today. Continues to have neck extensor weakness and bulbar weakness causing dysphagia. Tolerated 5 doses of IVIG well without any side effects. Exam - Neurology Vital Signs Temp Pulse Resp BP Pulse Ox O2 Del Method 97.3 F 60 12 152/81 H 98 Room Air 11/14/24 20:00 11/14/24 20:00 11/14/24 20:00 11/14/24 20:00 11/14/24 20:00 11/14/24 20:00 Narrative Exam GENERAL APPEARANCE: Well hydrated, well-nourished in no acute distress. HEENT: Normocephalic, atraumatic, extraocular movements intact. Pupils: Equal reacting to light and accommodation NECK: Supple, no JVD or bruits. CARDIOVASULAR: Heart: S1, S2 heard, regular without S3-S4 or murmur no rubs or gallops. LUNGS/CHEST: Clear to auscultation bilaterally. No rails, rhonchi, or wheezing. Normal inspection. ABDOMEN: Soft, nontender, with normal bowel sounds. No pulsatile masses. No rebound, rigidity, or guarding. Normal inspection and palpation. EXTREMITIES: Normal inspection and palpation. No edema, clubbing or cyanosis. SKIN: Warm and dry without rashes. Normal inspection. MUSCULOSKELETAL: No cervical, thoracic, lumbar or midline bony tenderness. Normal inspection. NEURO: Alert, awake and oriented x3. Cranial nerves: II through XII grossly intact. Speech and language: Mild dysarthria secondary to bulbar weakness. Motor system: Tone and bulk: Normal: Strength: 5 out of 5 in all 4 extremities; No pronator drift noted. He has significant neck extensor weakness. Deep tendon reflexes: 1+ bilaterally symmetrical. Plantar reflex: Downgoing bilaterally. Sensory system: Intact to all modalities of sensation bilaterally. Coordination: Intact to [id number] and [id number] test bilaterally. No ataxia, no dysmetria, or dysdiadochokinesia noted. No intention tremors noted. Gait: Not tested. no signs of meningeal irritation noted. PSYCHIATRIC: Normal mood and affect. Objective Labs 11/15/24 05:18 11/15/24 05:18 Labs: Laboratory Results - last 24 hr 11/14/24 04:54 WBC 6.0 RBC 4.57 Hgb 13.4 L Hct 38.6 L MCV 85 MCH 29.3 MCHC 34.7 RDW Std Deviation 39.1 Plt Count 161 Neut % (Auto) 79 Lymph % (Auto) 17 [place] % (Auto) 4 Eos % (Auto) 0 Baso % (Auto) 0 Neut # (Auto) 4.7 Lymph # (Auto) 1.0 [place] # (Auto) 0.3 Eos # (Auto) 0.0 Baso # (Auto) 0.0 Immature Gran # (Auto) 0.01 H Absolute Nucleated RBC 0.00 Immature Gran % 0 Nucleated RBC % 0 Sodium 141 Potassium 4.1 D Chloride 107 Carbon Dioxide 27.9 Anion Gap 6 L BUN 15 Creatinine 0.9 Estim Creat Clear Calc 80.0 eGFR > 60 BUN/Creatinine Ratio 17 Glucose 135 H Calculated Osmolality 284 Calcium 8.9 Corrected Calcium 9.4 Magnesium 1.9 Total Bilirubin 0.3 AST 31 ALT 33 Alkaline Phosphatase 64 Total Protein 7.7 Albumin 3.4 Globulin 4.3 H Albumin/Globulin Ratio 0.8 L Assessment & Plan Assessment and plan (1) Myasthenia gravis with exacerbation: Status: Acute Assessment and plan: Continue with Mestinon 60 mg every [address] of 2 mg IV, every 4 hours as it is not available. Prednisone 20 mg twice a day continue with GI and DVT prophylaxis. Hopefully his swallowing improves with time, if not will consider NGT feeding. Noted his heart rate went down to the 30s. (2) Parkinsons disease: Status: Chronic Assessment and plan: Continue with pramipexole as prescribed
[2024-11-15] MEDS: pyRIDostigmine bromide 60 MG TABLET PO ×5 (00:22→23:25)
[2024-11-15] MEDS: RINGERS LACTATED 1000 ML 1,000 ML 75 ML IV ×2 (04:01→17:27)
[2024-11-15] MEDS: PRAMIPEXOLE 0.25 MG TABLET 0.5 MG PO ×3 (05:12→21:06)
[2024-11-15 06:26] LABS: Basophils % (Auto) 0 % (0-2.5); Eosinophils % (Auto) 0 % (0-10); Hematocrit 41.3 % (41.0-53.0); Hemoglobin 14.3 g/dL (13.5-16.0); Immature Granulocytes % (Auto) 0 % (0-0); Immature Granulocytes Auto 0.01 Thou/mm3 (0.00-0.00); Lymphocytes # (Auto) 0.9 Thou/mm3 (1.0-4.8); Lymphocytes % (Auto) 18 % (10-50); Mean Corpuscular HGB Conc 34.6 g/dl (31.0-37.0); Mean Corpuscular Hemoglobin 29.2 pg (25.0-35.0); Mean Corpuscular Volume 84 fL (80-100); Monocytes # (Auto) 0.3 Thou/mm3 (0.0-0.8); Monocytes % (Auto) 6 % (0-12); Neutrophils # (Auto) 3.8 Thou/mm3 (1.8-7.7); Neutrophils % (Auto) 76 % (37-80); Nucleated Red Blood Cell % 0 /100 WBC (0); Platelet Count 180 Thou/mm3 (140-440); RDW Standard Deviation 38.2 fL (35.1-43.9)
[2024-11-15 06:42] LABS: Alanine Aminotransferase 48 U/L (10-49); Albumin, Serum 3.5 gm/dL (3.4-4.8); Albumin/Globulin Ratio 0.9 (1.2-2.2); Alkaline Phosphatase 67 U/L (46-116); Anion Gap 7 (7-16); Aspartate Amino Transferase 39 U/L (0-34); BUN/Creatinine Ratio 19 Ratio (12-20); Bilirubin,Total 0.4 mg/dL (0.3-1.2); Blood Urea Nitrogen 17 mg/dL (9-23); Calcium 8.7 mg/dL (8.3-10.6); Calcium (Corrected) 9.1 mg/dL (8.5-10.1); Carbon Dioxide 29.5 mMol/L (20.0-31.0); Chloride 103 mMol/L (98-107); Creatinine (Component) 0.9 mg/dL (0.6-1.3); Globulin 3.8 gm/dL (2.3-3.5); Glucose 98 mg/dL (74-106); Osmolality,Calculated 279 (275-295); Potassium 3.9 mMol/L (3.4-5.1); Sodium 139 mMol/L (136-145); Total Protein 7.3 gm/dL (5.7-8.2); eGFR > 60 See Note
[2024-11-15] MEDS: TAMSULOSIN HCL 0.4 MG CAPSULE PO (09:00)
[2024-11-15] MEDS: PANTOPRAZOLE INJ 40 MG VIAL IVP (09:01)
[2024-11-15] MEDS: Lisinopril 2.5 MG TABLET 5 MG PO (09:01)
[2024-11-15] MEDS: HEPARIN SOD INJ 5000 UNIT/ML VIAL SC ×2 (09:01→20:38)
[2024-11-15] MEDS: predniSONE 20 MG TABLET PO ×2 (09:01→20:38)
--- NOTE | 2024-11-15 12:18 | PD.RESPRO ---
Documentation for date of: 11/15/24 Subjective Subjective Interval history: Patient was seen and examined at bedside. No acute overnight events. Patient tolerates diet slightly better today, will advance to dysphagia 2. He completed IVIG course, will continue him on pyridostigmine and prednisone. Possible discharge tomorrow. Exam Vital Signs Temp Pulse Resp BP Pulse Ox O2 Del Method 97.0 F 55 L 18 160/67 H 98 Room Air 11/15/24 08:00 11/15/24 09:01 11/15/24 08:00 11/15/24 09:01 11/15/24 08:00 11/15/24 08:00 Narrative Exam Gen: Well-developed and well-nourished elderly male. HEENT: NCAT, PERRLA, EOMI, MMM, anicteric conjunctivae. CVS: normal S1 and S2. RRR. No M/R/G. Resp: CTA B/L. No rhonchi, rales, crackles or wheezing. Abd: soft, non-tender, non-distended. BS+ in all 4 quadrants. MSK: Good ROM in BUE & BLE. No edema or rash. Neuro: CN II-XII grossly intact. Strength 5/5 in BUE & 3/5 BLE. LUE fine tremor noted. Alert and oriented x3. Psych: appropriate mood and affect. Objective Labs 11/16/24 05:03 11/16/24 05:03 Labs: Laboratory Results - last 24 hr 11/15/24 05:18 WBC 5.0 RBC 4.90 Hgb 14.3 Hct 41.3 MCV 84 MCH 29.2 MCHC 34.6 RDW Std Deviation 38.2 Plt Count 180 Neut % (Auto) 76 Lymph % (Auto) 18 [place] % (Auto) 6 Eos % (Auto) 0 Baso % (Auto) 0 Neut # (Auto) 3.8 Lymph # (Auto) 0.9 L [place] # (Auto) 0.3 Eos # (Auto) 0.0 Baso # (Auto) 0.0 Immature Gran # (Auto) 0.01 H Absolute Nucleated RBC 0.00 Immature Gran % 0 Nucleated RBC % 0 Sodium 139 Potassium 3.9 Chloride 103 Carbon Dioxide 29.5 Anion Gap 7 BUN 17 Creatinine 0.9 Estim Creat Clear Calc 80.0 eGFR > 60 BUN/Creatinine Ratio 19 Glucose 98 Calculated Osmolality 279 Calcium 8.7 Corrected Calcium 9.1 Magnesium 2.0 Total Bilirubin 0.4 AST 39 H ALT 48 Alkaline Phosphatase 67 Total Protein 7.3 Albumin 3.5 Globulin 3.8 H Albumin/Globulin Ratio 0.9 L Quality Measures Quality Measures VTE prophylaxis Advance care planning discussed with:: patient Assessment & Plan Assessment Current Active Medications: Generic Name Dose Route Start Last Admin Trade Name Freq PRN Reason Stop Dose Admin Acetaminophen 650 mg 11/09/24 21:26 Acetaminophen 325 Mg Tablet PO 12/09/24 21:25 Q6H PRN Mild Pain (1-3 & Fever >101.5 Heparin Sodium (Porcine) 5,000 unit 11/10/24 09:00 11/15/24 09:01 Heparin Sod Inj 5000 Unit/Ml Vial SC 11/24/24 08:59 5,000 unit Q12HR H[facility]IGH Administration Hydralazine HCl 10 mg 11/13/24 07:29 11/14/24 12:20 Hydralazine Hcl 10 Mg Tablet PO 12/13/24 07:28 10 mg Q6HR PRN Administration SBP>160 Lactated Ringer's 1,000 mls @ 75 mls/hr 11/11/24 10:30 11/15/24 04:01 Lactated Ringers IV 12/10/24 10:29 75 mls/hr .[id number] HALEIGH Administration Lisinopril 5 mg 11/15/24 09:00 11/15/24 09:01 Lisinopril 2.5 Mg Tablet PO 12/15/24 08:59 5 mg QDAY HALEIGH Administration Pantoprazole Sodium 40 mg 11/10/24 09:00 11/15/24 09:01 Pantoprazole Inj 40 Mg Vial IVP 12/10/24 08:59 40 mg QDAY HALEIGH Administration Polyethylene Glycol 17 gm 11/12/24 09:00 11/15/24 09:02 Polyethylene Glycol 17 Gm Packet PO 12/12/24 08:59 Not Given QDAY HALEIGH Pramipexole Dihydrochloride 0.5 mg 11/10/24 06:00 11/15/24 05:12 Pramipexole 0.25 Mg Tablet PO 12/10/24 05:59 0.5 mg TID HALEIGH Administration Prednisone 20 mg 11/12/24 11:30 11/15/24 09:01 Prednisone 20 Mg Tablet PO 11/19/24 11:17 20 mg BID HALEIGH Administration Pyridostigmine [place] 2 mg 11/11/24 10:00 11/13/24 11:10 Pyridostigmine Inj 5 Mg/Ml Amp 2 Ml IV 12/11/24 09:59 Not Given Q4HR HALEIGH Pyridostigmine [place] 60 mg 11/14/24 13:00 11/15/24 11:59 Pyridostigmine [place] 60 Mg Tablet PO 12/14/24 12:59 60 mg Q6HR HALEIGH Administration Fluticasone/Salmeterol 1 puff 11/09/24 21:16 Fluticasone/Salmeterol 100/50 14 Dose Inh INH 12/10/24 06:59 BIDRT PRN SOB/Wheeze Tamsulosin HCl 0.4 mg 11/15/24 09:00 11/15/24 09:00 Tamsulosin Hcl 0.4 Mg Capsule PO 12/15/24 08:59 0.4 mg QDAY HALEIGH Administration Plan The patient is a 78-year-old male with past medical history of myasthenia gravis, Parkinson's disease and allergic seasonal bronchitis who presented to [facility] on 11/09/2024 with a chief complaint of dysphagia and neck muscle weakness. He was recently evaluated in neurologists office who recommended patient to be admitted for management of myasthenia gravis exacerbation. Neurology is consulted and will be following closely. #Myasthenia gravis exacerbation. #Dysphagia. #Neck extensor weakness. The patient presented with exacerbation of myasthenia gravis symptoms, dysphagia, jaw muscle weakness, neck weakness noted for about 3 weeks. Patient compliant with myasthenia gravis medications, was recently seen in neurologist office, neurology recommended admission for myasthenia gravis exacerbation. Neurology was consulted and is following closely. No respiratory muscle weakness noted, patient saturating well on room air. Patient failed swallow evaluation today, will continue to be npo and repeat eval in 24-48hrs CT chest- no anterior mediastinal mass 11/13/2024- Patient doing well, no overnight events. Continue management per neuro recommendations, added prednisone 20 mg daily Will cautiously feed patient today with thicker consistency and nurse swallow screen. Continue IV fluids in the interim Will continue advance diet and see how patient tolerates p.o. May need PEG if he does not improve. Plan: ? Continue Pyridostigmine 2 mg IV every 4 hours ? IVIG 3 days course completed. - Prednisone 20 mg daily ? Neurology consulted, appreciate recommendations #Parkinson's disease Follows neurology for Parkinson's, pill-rolling tremor noted left hand Plan: ?continue home dose pramipexole 0.5 mg 3 times daily #Seasonal allergic bronchitis No wheezing appreciated currently, patient saturating well on room air -Fluticasone salmeterol inhaler twice daily be added #Health maintenance DVT prophylaxis: SC Heparin GI prophylaxis: IV Protonix Diet: dysphagia 2. Lines: Peripheral IV Code status: Full code Plan of care discussed with attending Dr. Ann. Ezequiel Turner MD, PGY 2. Disclaimer: This note was dictated by speech recognition. Minor errors in rail gang supervisor may be present due to voice recognition software. Attending Provider Attestation/Addendum I have examined the patient, reviewed labs and imaging findings, discussed the case with the resident(s), and reviewed entered orders. I agree with the plan of care as outlined in this note, with these additional summaries/recommendations: Patient seen at bedside. No acute overnight events. Left hand tremor noted. Patient reports improvement in his dysphagia. Per speech therapy patient tolerated pur?ed dysphagia 1 diet and we will advance to mechanically altered dysphagia 2 diet this afternoon. We will continue to advance diet as tolerated. We will continue pyridostigmine and daily oral prednisone for myasthenia gravis exacerbation. Status post IVIG. In-house neurology following. Intermittent sinus bradycardia noted, although patient is asymptomatic & no intervention needed at this time. Anticipate discharge in the next 24 to 48 hours if dysphagia continues to improve. Repeat hematology and chemistry panel in AM. Dr. Ann
--- NOTE | 2024-11-15 14:41 | PC.PT ---
Patient is clear to ambulate to the bathroom using the FWW and 1 staff assist. RN made aware.
--- NOTE | 2024-11-15 14:41 | PC.SS ---
Rounding Note: Patient's dysphasia is improving. Plan is to d/c tomorrow, home with home health.
--- NOTE | 2024-11-15 21:33 | PD.VPROG1 ---
Telemedicine visit statement This visit was conducted with the use of phone was obtained on 11/15/24 at 2133. Documentation for date of: 11/15/24 Subjective Subjective Interval history: Patient is in telemetry, swallowing has improved to some extent. Patient did have transient bradycardia with heart rate in the 40s but did not last very long. Also noted that he has been having some hallucinations and delusions. Could be related to steroids Virtual exam Vital Signs Temp Pulse Resp BP Pulse Ox O2 Del Method 97.4 F 106 H 17 151/75 H 97 Room Air 11/15/24 20:00 11/15/24 20:00 11/15/24 20:00 11/15/24 20:00 11/15/24 20:00 11/15/24 20:00 Objective Labs 11/15/24 05:18 11/15/24 05:18 Labs: Laboratory Results - last 24 hr 11/15/24 05:18 WBC 5.0 RBC 4.90 Hgb 14.3 Hct 41.3 MCV 84 MCH 29.2 MCHC 34.6 RDW Std Deviation 38.2 Plt Count 180 Neut % (Auto) 76 Lymph % (Auto) 18 [place] % (Auto) 6 Eos % (Auto) 0 Baso % (Auto) 0 Neut # (Auto) 3.8 Lymph # (Auto) 0.9 L [place] # (Auto) 0.3 Eos # (Auto) 0.0 Baso # (Auto) 0.0 Immature Gran # (Auto) 0.01 H Absolute Nucleated RBC 0.00 Immature Gran % 0 Nucleated RBC % 0 Sodium 139 Potassium 3.9 Chloride 103 Carbon Dioxide 29.5 Anion Gap 7 BUN 17 Creatinine 0.9 Estim Creat Clear Calc 80.0 eGFR > 60 BUN/Creatinine Ratio 19 Glucose 98 Calculated Osmolality 279 Calcium 8.7 Corrected Calcium 9.1 Magnesium 2.0 Total Bilirubin 0.4 AST 39 H ALT 48 Alkaline Phosphatase 67 Total Protein 7.3 Albumin 3.5 Globulin 3.8 H Albumin/Globulin Ratio 0.9 L Assessment & Plan Problem List (1) Myasthenia gravis with exacerbation: Status: Acute Assessment and plan: CT chest ruled out residual thymic tissue Completed 5 doses of IVIG continue with PO Mestinon 60 mg every 6 hours Prednisone 20 mg twice a day with close monitoring for paradoxical worsening if any Continue with GI and DVT prophylaxis. Continue to help him with ambulation as needed (2) Parkinsons disease: Status: Chronic Assessment and plan: Continue with pramipexole. Continue to monitor him for worsening psychosis, steroids could have brought it up.
[2024-11-16] VITALS (9 sets, daily range): BP systolic 141–162; BP diastolic 75–91; PULSE 44–98; RESP 19–20; TEMP 36.1–36.9; O2SAT 94–98
[2024-11-16] MEDS: PRAMIPEXOLE 0.25 MG TABLET 0.5 MG PO ×2 (05:01→13:43)
[2024-11-16] MEDS: pyRIDostigmine bromide 60 MG TABLET PO ×2 (05:02→12:06)
[2024-11-16] MEDS: RINGERS LACTATED 1000 ML 1,000 ML 75 ML IV (05:07)
[2024-11-16 06:06] LABS: Basophils % (Auto) 0 % (0-2.5); Eosinophils % (Auto) 0 % (0-10); Hematocrit 41.1 % (41.0-53.0); Hemoglobin 14.1 g/dL (13.5-16.0); Immature Granulocytes % (Auto) 0 % (0-0); Immature Granulocytes Auto 0.01 Thou/mm3 (0.00-0.00); Lymphocytes # (Auto) 1.1 Thou/mm3 (1.0-4.8); Lymphocytes % (Auto) 23 % (10-50); Mean Corpuscular HGB Conc 34.3 g/dl (31.0-37.0); Mean Corpuscular Hemoglobin 28.9 pg (25.0-35.0); Mean Corpuscular Volume 84 fL (80-100); Monocytes # (Auto) 0.4 Thou/mm3 (0.0-0.8); Monocytes % (Auto) 8 % (0-12); Neutrophils # (Auto) 3.3 Thou/mm3 (1.8-7.7); Neutrophils % (Auto) 69 % (37-80); Nucleated Red Blood Cell % 0 /100 WBC (0); Platelet Count 160 Thou/mm3 (140-440); RDW Standard Deviation 38.8 fL (35.1-43.9); Red Blood Count 4.88 Miln/mm3 (4.50-5.90); White Blood Count 4.8 Thou/mm3 (3.8-10.6)
[2024-11-16 06:22] LABS: Alanine Aminotransferase 60 U/L (10-49); Albumin, Serum 3.4 gm/dL (3.4-4.8); Albumin/Globulin Ratio 0.9 (1.2-2.2); Alkaline Phosphatase 64 U/L (46-116); Anion Gap 7 (7-16); Aspartate Amino Transferase 53 U/L (0-34); BUN/Creatinine Ratio 21 Ratio (12-20); Bilirubin,Total 0.3 mg/dL (0.3-1.2); Blood Urea Nitrogen 17 mg/dL (9-23); Calcium 8.9 mg/dL (8.3-10.6); Calcium (Corrected) 9.4 mg/dL (8.5-10.1); Carbon Dioxide 29.7 mMol/L (20.0-31.0); Chloride 103 mMol/L (98-107); Creatinine (Component) 0.8 mg/dL (0.6-1.3); Globulin 3.6 gm/dL (2.3-3.5); Glucose 93 mg/dL (74-106); Osmolality,Calculated 280 (275-295); Potassium 4.2 mMol/L (3.4-5.1); Sodium 140 mMol/L (136-145); eGFR > 60 See Note
[2024-11-16] MEDS: predniSONE 20 MG TABLET PO (09:37)
[2024-11-16] MEDS: Lisinopril 2.5 MG TABLET 5 MG PO (09:38)
[2024-11-16] MEDS: TAMSULOSIN HCL 0.4 MG CAPSULE PO (09:38)
[2024-11-16] MEDS: HEPARIN SOD INJ 5000 UNIT/ML VIAL SC (09:38)
[2024-11-16] MEDS: PANTOPRAZOLE INJ 40 MG VIAL IVP (09:38)
[2024-11-16] MEDS: POLYETHYLENE GLYCOL 17 GM PACKET PO (09:42)
--- NOTE | 2024-11-16 14:46 | ESDS_ITS ---
Planned Discharge Date 11/16/24 DS: Providers Provider Date of admission: 11/09/24 17:50 Primary care physician: Physician No Primary/Family Admitting Provider: Fortunato Arceo DO Attending Provider on Admission: Deven Nieto MD Consults: 11/09/24 18:54 Referral Physical Therapy Routine Comment: Physician Instructions: Referral Registered Dietitian Routine Comment: Referral Speech Therapy Routine Comment: 11/09/24 19:44 Consult to Neurology / Tele-Neurology Routine Comment: Myesthenia Gravis Exacerbation Consulting Provider: Willard Muñoz Attending Provider on DC: Jonathan Ann MD Discharging Provider: Freddie Thomas MD DS: Diagnosis Problem List Completed Was Problem List Reviewed/Reconciled?: Yes Hospital Course Hospital Course Hospital course: The patient is a 78-year-old male with a past medical history of myasthenia gravis and Parkinson's disease who presented to the ED on 11/09/2024 with a chief complaint of dysphagia and neck muscle weakness. Per patient, his symptoms have been worsening over the past year but significantly over the past 3 weeks prior to admission. He had an appointment with his neurologist Dr Muñoz who recommended he be admitted for management of myasthenia gravis exacerbation. He was started on IVIG infusions as well as IV pyridostigmine, prednisone was added a couple days later. During the course of hospitalization, the patient had several speech and swallow evaluations to document a safe diet for him. He was initially placed n.p.o. was he was high risk for aspiration but eventually transition to a puree diet as this consistency was easier for him to swallow. Today, the patient is clinically improved and hemodynamically stable while he does have some form of bradycardia which is suspected to be a side effect of the Mestinon. He has been cleared by neurology for discharge to continue on prednisone 10 mg in the morning and 20 mg in the evening for another week as well as prednisone at 60 mg 5 times daily. He is recommended to follow up with his PCP within 1 week of discharge as well as neurologist Dr Muñoz #Myasthenia gravis exacerbation #Dysphagia #History of Parkinson's disease Discharge instructions: Follow up with PCP within 1 week of discharge Follow up with Neurologist Dr Muñoz in one week Continue home dose of mestinon, 60mg 5x daily Continue prednisone- take 10mg (2 tablets) in the morning and 20mg (4 tablets) in the evening until follow up with Neurology Follow a dysphagia diet to prevent aspiration Return to the ED if your symptoms worsen Case was discussed with Dr Josue PGY-2 and attending physician, Dr Ann Disclaimer: This note was dictated by speech recognition. Minor errors in manager student services may be present due to voice recognition software. Time Spent with Patient Time attestation: Total time spent providing and/or coordinating discharge services: Home Health Home Health Referral Orders: 11/15/24 16:34 Home Health Referral Routine Reason For Exam: physical therapy Home-Bound The patient must either because of illness or injury, need the aid of supportive devices such as crutches, canes, wheelchairs, and walkers; the use of special transportation; or the assistance of another person in order to leave their place of residence; OR have a condition such that leaving his or her home is medically contraindicated. In addition, the patient also meets the following criteria: patient is normally unable to leave the home and leaving home requires considerable taxing effort. Addendum to Home Health Certification Practitioner's Certification: I certify that the patient has been under my care in the hospital and the care of attending physician (see below). We had a fufk-[id number] encounter on (see date below). My clinical findings indicate that the patient is home bound per the above criteria and the Home Health Services noted in these orders are medically necessary. The primary reason for the [id number] encounter is related to the fact that the patient requires home health services. Date Certifying [id number]-[id number] Physician Encounter: 11/09/24 Physician's Name who will Assume Oversight for HH Services: Tammy Bowers PUBLIC HEALTH ADVISOR - Community Resources: Yes PT to Evaluate: Yes PT to evaluate and provide a treatmnet plan to increase patient's mobility and strength. Wound Care: No IV Therapy: No RN Safety Evaluation: Yes RN to evaluate and create a plan of care that will produce positive outcomes. Palliative Treatment: No Palliative treatment and evaluate the need for hospice. Home Health Aide - Personal Care: No Home Health Aide to assist with any ADL's. 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 Resting tremors more significant to the left, upper extremity strength preserved-5/5, lower extremity strength-3/5, reflexes decreased bilaterally HEENT: Moist mucosa. Eyes open, symmetrical, & clear CARDIO: No chest pain on palpation. Heart RRR, no obvious murmurs PULM: No noted coughing/dyspnea. Lungs CTA B/L GI: Abdomen soft, nondistended, no pain on palpation. BSx4 URO/FIRE BEHAVIOR ANALYST:: No further abnormalities noted. SKIN/MSK/EXT: Weakness in the neck extensor muscles Discharge Plan Plan Patient Disposition: Home w/HOME HEALTH Care Plan Goals: Follow up with PCP within 1 week of discharge Follow up with Neurologist Dr Muñoz in one week Continue home dose of mestinon, 60mg 5x daily Continue prednisone- take 10mg (2 tablets) in the morning and 20mg (4 tablets) in the evening until follow up with Neurology Follow a dysphagia diet to prevent aspiration Return to the ED if your symptoms worsen Prescriptions/Referrals Prescriptions/Med Rec: New lisinopril 10 mg tablet 10 mg PO QDAY 30 Days Qty: 30 0RF prednisone 10 mg tablet 5 mg PO QDAY 7 Days Qty: 42 0RF Taper: Prednisone Taper 10 mg EVERY MORNING AT 0900 for 7 Days and 0 Hour 20 mg EVERY EVENING for 7 Days and 0 Hour Rx Instructions: Take prednisone 10mg every morning and 20mg every evening for 7days tamsulosin 0.4 mg Capsule 0.4 mg PO QDAY Qty: 30 0RF Continued fluticasone propion-salmeterol [Wixela Inhub] 100-50 mcg/dose blister with device 1 inh inhalation BID Patient Comments: took within the last week pramipexole 0.5 mg tablet 0.5 mg PO 3XD Patient Comments: TAKE 1 TABLET BY MOUTH THREE TIMES A DAY pyridostigmine bromide 60 mg tablet 60 mg PO 5 TIMES DAILY Patient Comments: TAKE 1 TABLET BY ORAL ROUTE 5 TIMES PER DAY Discontinued tamsulosin 0.4 mg capsule 0.4 mg PO QHS enalapril maleate [Vasotec] 5 MG tablet 5 mg PO QDAY Qty: 0 azathioprine [Imuran] 50 MG tablet 50 mg PO BID Qty: 0 Pyridostigmine Superior SA * (MESTINON SA *) 60 mg TABLET.SA 60 mg PO 5 TIMES DAILY Qty: 0 carbidopa-levodopa 25-100 mg tablet 1 tab PO 3XD Patient Comments: TAKE 1 TABLET BY MOUTH THREE TIMES A DAY Referrals: No Primary/Family,Physician [Primary Care Provider] - Patient/Caregiver Discharge Instructions Other Discharge Activity Instructions:: Follow up with PCP within 1 week of discharge Follow up with Neurologist Dr Muñoz in one week Continue home dose of mestinon, 60mg 5x daily Continue prednisone- take 10mg (2 tablets) in the morning and 20mg (4 tablets) in the evening until follow up with Neurology Follow a dysphagia diet to prevent aspiration Return to the ED if your symptoms worsen Education Materials: Dysphagia Diet- Managing Foods Print Language: Welsh Stand Alone Forms: [employer] Award Info., Patient Portal Info Letter Discharge Order Discharge Orders: Discharge (Routine); Ordered 11/16/24 Ordered By: Freddie Thomas Quality Discharge Quality Measures VTE prophylaxis MD Attestestation MD Attestation I have examined the patient, reviewed labs and imaging findings, discussed the case with the resident(s), and reviewed entered orders. I agree with the plan of care as outlined in this note. Dr. Ann
--- NOTE | 2024-11-16 17:03 | PC.SS ---
Rounding Note: Plan is discharge patient home with home health.
--- NOTE | 2024-11-16 21:46 | ESPR_ITS ---
Documentation for date of: 11/16/24 Subjective Subjective Interval history: Patient was seen in telemetry today. Continues to have neck extensor weakness and bulbar weakness causing dysphagia. Tolerated 5 doses of IVIG well without any side effects. Exam - Neurology Vital Signs Temp Pulse Resp BP Pulse Ox O2 Del Method 98.1 F 69 20 141/75 H 97 Room Air 11/16/24 12:00 11/16/24 13:00 11/16/24 12:00 11/16/24 12:00 11/16/24 12:00 11/16/24 12:00 Narrative Exam GENERAL APPEARANCE: Well hydrated, well-nourished in no acute distress. HEENT: Normocephalic, atraumatic, extraocular movements intact. Pupils: Equal reacting to light and accommodation NECK: Supple, no JVD or bruits. CARDIOVASULAR: Heart: S1, S2 heard, regular without S3-S4 or murmur no rubs or gallops. LUNGS/CHEST: Clear to auscultation bilaterally. No rails, rhonchi, or wheezing. Normal inspection. ABDOMEN: Soft, nontender, with normal bowel sounds. No pulsatile masses. No rebound, rigidity, or guarding. Normal inspection and palpation. EXTREMITIES: Normal inspection and palpation. No edema, clubbing or cyanosis. SKIN: Warm and dry without rashes. Normal inspection. MUSCULOSKELETAL: No cervical, thoracic, lumbar or midline bony tenderness. Normal inspection. NEURO: Alert, awake and oriented x3. Cranial nerves: II through XII grossly intact. Speech and language: Mild dysarthria secondary to bulbar weakness. Motor system: Tone and bulk: Normal: Strength: 5 out of 5 in all 4 extremities; No pronator drift noted. He has significant neck extensor weakness. Deep tendon reflexes: 1+ bilaterally symmetrical. Plantar reflex: Downgoing bilaterally. Sensory system: Intact to all modalities of sensation bilaterally. Coordination: Intact to pukbvc-pwek-[id number] and wrvh-shev-[id number] test bilaterally. No ataxia, no dysmetria, or dysdiadochokinesia noted. No intention tremors noted. Gait: Not tested. no signs of meningeal irritation noted. PSYCHIATRIC: Normal mood and affect. Objective Labs 11/16/24 05:03 11/16/24 05:03 Labs: Laboratory Results - last 24 hr 11/16/24 05:03 WBC 4.8 RBC 4.88 Hgb 14.1 Hct 41.1 MCV 84 MCH 28.9 MCHC 34.3 RDW Std Deviation 38.8 Plt Count 160 Neut % (Auto) 69 Lymph % (Auto) 23 [place] % (Auto) 8 Eos % (Auto) 0 Baso % (Auto) 0 Neut # (Auto) 3.3 Lymph # (Auto) 1.1 [place] # (Auto) 0.4 Eos # (Auto) 0.0 Baso # (Auto) 0.0 Immature Gran # (Auto) 0.01 H Absolute Nucleated RBC 0.00 Immature Gran % 0 Nucleated RBC % 0 Sodium 140 Potassium 4.2 Chloride 103 Carbon Dioxide 29.7 Anion Gap 7 BUN 17 Creatinine 0.8 Estim Creat Clear Calc 90.0 eGFR > 60 BUN/Creatinine Ratio 21 H Glucose 93 Calculated Osmolality 280 Calcium 8.9 Corrected Calcium 9.4 Magnesium 2.0 Total Bilirubin 0.3 AST 53 H ALT 60 H Alkaline Phosphatase 64 Total Protein 7.0 Albumin 3.4 Globulin 3.6 H Albumin/Globulin Ratio 0.9 L Assessment & Plan Assessment and plan (1) Myasthenia gravis with exacerbation: Status: Acute (2) Parkinsons disease: Status: Chronic
--- NOTE | 2024-11-17 18:24 | PC.CM ---
Patient wanted [facility] So I faxed referral to [facility] today.
== END 2024-11-16 13:45 | disposition home health service (06) | DRG 57 ==
LOC: S2NX 11-10 02:55 → S3SX 11-10 05:56 → S2NX 11-10 05:56
PROVIDERS: Admitting Provider Student in an Organized Health Care Education/Training Program; Visit Provider Student in an Organized Health Care Education/Training Program
DX: G70.01 Myasthenia gravis with (acute) exacerbation (principal); G20.A1 Parkinson's disease without dyskinesia, without mention of fluctuations; R13.10 Dysphagia, unspecified; R53.1 Weakness; J45.998 Other asthma; T44.0X5A Adverse effect of anticholinesterase agents, initial encounter; R00.1 Bradycardia, unspecified; Z91.040 Latex allergy status
CPT/HCPCS: 36415; 71045; 71260; 80053; 80061; 81001; 83735; 84100; 84443; 85025; 85610; 85730; 87040; 92526; 92610; 93005; 94762; 97162; A4649; J1200; J1459; J1643; J2470; J3475; J7030; J7120; J7512; Q9967; A9270